=== PATIENT | female | born 2000 | race Caucasian/White ===

== ENCOUNTER → 2021-09-23 09:03 | Outpatient (CLI) | payer OTHER, SELFPAY ==
[2021-09-23 09:38] LABS: Basophils # 0.1 K/mm3 (0-0.2); Basophils % 0.8 % (0.1-2.0); Eosinophils % 9.4 % (0.1-12.0); Hematocrit 42.7 % (37.0-47.0); Hemoglobin 14.1 g/dL (12.2-16.2); Lymphocytes % 20.1 % (10-50); Mean Corpuscular HGB Conc 33.1 g/dL (31.8-35.4); Mean Corpuscular Hemoglobin 27.9 pg (27.0-31.2); Mean Corpuscular Volume 84.2 fl (81-99); Mean Platelet Volume 6.9 fl (7.4-10.4); Monocytes # 0.6 K/mm3 (0.1-1.0); Monocytes % 6.2 % (1.7-9.3); Neutrophils # 6.5 K/mm3 (1.8-7.8); Neutrophils % 63.5 % (37.0-80.0); Platelet Count 402 K/mm3 (142-424); Red Blood Count 5.07 M/mm3 (4.20-5.40); Red Cell Distribution Width 12.7 % (11.5-17.5); White Blood Count 10.2 K/mm3 (4.5-13.0)
[2021-09-23 10:36] LABS: Alanine Aminotransferase 20 U/L (12-78); Albumin Level 4.2 g/dl (3.5-5.0); Albumin/Globulin Ratio 1.8 (1.1-1.8); Alkaline Phosphatase 56 U/L (38-126); Anion Gap 11.6 mEq/L (5-15); Aspartate Amino Transferase 23 U/L (14-36); Bilirubin,Total 0.7 mg/dl (0.2-1.3); Blood Urea Nitrogen 12 mg/dl (7-17); Calcium 9.5 mg/dl (8.4-10.2); Carbon Dioxide 24 mmol/L (22.0-30.0); Chloride 104 mmol/L (98-107); Estimated Glomerular Filt Rate 107 ml/min (>60); GFR (African American) 129 ML/MIN (>60); Globulin 2.4 g/dL (1.3-3.2); Glucose 98 mg/dl (74-100); Potassium 4.6 mmoL/L (3.5-5.1); Sodium 135 mmol/L (136-145); Total Protein,Serum 6.6 g/dl (6.3-8.2)
[2021-09-23 11:08] LABS: Thyroid Stimulating Hormone 1.14 uIU/mL (0.465-4.68)
[2021-09-23 11:27] LABS: Vitamin B12 540 pg/mL (239-931)
== END ==
PROVIDERS: Visit Provider Nurse Practitioner Family
DX: R53.81 Other malaise (principal)
CPT/HCPCS: 36415; 80053; 82607; 84443; 85025

== ENCOUNTER → 2021-10-01 08:45 | Outpatient (CLI) | payer OTHER, SELFPAY ==
[2021-10-01 11:21] LABS: HCG,Quantitative 24443 mIU/ml (0-5.42)
== END ==
PROVIDERS: Visit Provider Obstetrics & Gynecology
DX: Z34.90 Encounter for supervision of normal pregnancy, unspecified, unspecified trimester (principal)
CPT/HCPCS: 36415; 84702

== ENCOUNTER → 2021-10-03 08:35 | Outpatient (CLI) | payer OTHER, SELFPAY ==
[2021-10-03 11:30] LABS: HCG,Quantitative 34618 mIU/ml (0-5.42)
== END ==
PROVIDERS: Visit Provider Obstetrics & Gynecology
DX: Z34.90 Encounter for supervision of normal pregnancy, unspecified, unspecified trimester (principal)
CPT/HCPCS: 36415; 84702

== ENCOUNTER → 2021-10-08 09:43 | Outpatient (CLI) | payer OTHER, SELFPAY ==
--- NOTE | 2021-10-08 09:44 | US_ITS ---
PROCEDURE: US OB <= 14 WEEKS FETUS CLINICAL INDICATION: Dates COMPARISON: No exams were available for comparison FINDINGS: An intrauterine gestational sac is present with a pole with a crown-rump length of 0.88cm correlating to gestational age of 6weeks 6days. heart tones are present with an FHR of 125bpm. Yolk sac is noted. Unremarkable adnexa IMPRESSION: Live IUP at 6 weeks 6 days Estimated due date by Ultrasound is 05/28/2022 Dictated by: Jasiel Haq MD 10/08/2021 15:57 Jasiel Haq MD in [place] 10/08/2021 15:57
== END ==
PROVIDERS: PCP Internal Medicine Adolescent Medicine; Visit Provider Obstetrics & Gynecology
DX: Z34.90 Encounter for supervision of normal pregnancy, unspecified, unspecified trimester (principal)
CPT/HCPCS: 76801

== ENCOUNTER → 2021-10-14 16:11 | Outpatient (CLI) | payer OTHER, SELFPAY ==
[2021-10-17 01:10] LABS: Neisseria gonorrhoeae, NAA Negative (Negative)
== END ==
PROVIDERS: Visit Provider Obstetrics & Gynecology
DX: Z34.90 Encounter for supervision of normal pregnancy, unspecified, unspecified trimester (principal)
CPT/HCPCS: 87491; 87591

== ENCOUNTER 2021-11-03 08:34 | Emergency (ER) | payer OTHER, SELFPAY ==
[2021-11-03 08:34] VITALS: BP 133/78; PULSE 103; RESP 18; TEMP 37.2; O2SAT 97; BMI 32.5
--- NOTE | 2021-11-03 09:04 | HMH.EDGENADL ---
ED Disposition Clinical Impression: Exposure to COVID-19 virus Disposition: Home, Self-Care Condition on Discharge: Good Instructions: DI for COVID-19 (Suspected or Confirmed ) Additional Instructions: Quarantine yourself until you obtain your COVID-19 test result. You will be called with the result. If your COVID test comes back positive, the recommendations for care and isolation are: Rest, drink plenty of fluids. Tylenol for fever and/or aches and pains. Monitor your symptoms. IF YOU HAVE AN EMERGENCY WARNING SIGN (INCLUDING TROUBLE BREATHING), SEEK EMERGENCY MEDICAL CARE IMMEDIATELY. COVID-19 Isolation: People with COVID-19 should isolate for 5 days. Then if they are asymptomatic (no symptoms) or their symptoms are resolving (without fever for 24 hours), follow that by 5 days of wearing a mask when around others to minimize the risk of infecting people you encounter. If you test positive for COVID-19 and never develop symptoms, day 0 is the day of your positive viral test (based on the date you were tested) and day 1 is the first full day after your positive test. If you develop symptoms after testing positive, your 5-day isolation period must start over. Day 0 is your first day of symptoms. Day 1 is the first full day after your symptoms developed. What to do: Stay in a separate room from other household members, if possible. Use a separate bathroom, if possible. Avoid contact with other members of the household and pets. Don?t share personal household items, like cups, towels, and utensils. Wear a mask when around other people if able. Referrals: Rj Terrell MD [Primary Care Provider] - - Critical Care Critical Care Time: No Attestation: On 11/03/21, the high probability of a clinically significant, sudden or life threatening deterioration of the following system(s) required my full and direct attention, intervention and personal management. The time I documented below is in addition to time spent performing reported procedures but includes the following listed in this critical care notation. Medical Decision Making - Yosef Inquiry Pt receiving controlled substance: No Vital Signs: 11/03/21 08:34 Temperature 98.9 F Temperature Source Oral Pulse Rate [Left Radial] 103 H Respiratory Rate 18 Blood Pressure [Right Arm] 133/78 Blood Pressure Mean [Right Arm] 96 Blood Pressure Source [Right Arm] Automatic Cuff Blood Pressure Position [Right Arm] Sitting 02 Sat by Pulse Oximetry 97 Oxygen Delivery Method Room Air General Adult HPI - General Chief complaint: Fever Stated complaint: 11 weeks w/covid symptoms Time Seen by Provider: 11/03/21 08:55 Mode of Arrival: Ambulatory Limitations: No Limitations Description of Symptoms (Recalled from ER Triage Doc. by RN): Fever, BROWNING, aches, sore throat, congestion, cough, soa, and vomiting since Thursday - History of Present Illness HPI narrative: 11 weeks gestation , requests a COVID test. She is here with her fianc? who is also requesting COVID test. Patient states that some of her classmates have had COVID. Also her fianc? has symptoms and he was exposed to 2 coworkers with COVID. She complains of headaches, nausea, fatigue, sore throat, mild cough, sweats, feeling hot and cold. She is not vaccinated against COVID-19. No vaginal bleeding or abdominal pain. - Related Data Home Medications Medication Instructions Recorded Confirmed cetirizine 10 mg tablet 10 mg PO QDAY 11/02/17 10/14/21 albuterol sulfate 90 mcg/actuation INHALATION 17 Days #18 g 12/16/18 10/14/21 aerosol inhaler famotidine 10 mg tablet 10 mg PO DAILY 10/14/21 10/14/21 vit no.95-ferrous 1 tab PO DAILY 10/14/21 10/14/21 fumarate 28 mg-folic acid 800 mcg tablet Previous Rx's Medication Instructions Recorded triamcinolone acetonide 0.1 % 1 applic TOPICAL TID #60 g 03/05/19 topical cream ferrous sulfate 325 mg (
--- NOTE | 2021-11-03 09:04 | PC.NURSE ---
Covid Swab and strep swab sent to lab
[2021-11-03 09:24] LABS: Strep Scrn Group A (Rapid) Negative (Negative)
[2021-11-03 09:30] VITALS: BP 124/78
[2021-11-03 09:31] VITALS: BP 124/78; PULSE 101; RESP 18; TEMP 37.2; O2SAT 96
== END 2021-11-03 09:38 | disposition home or self-care (01) ==
PROVIDERS: Emergency Provider Emergency Medicine; PCP Internal Medicine Adolescent Medicine
DX: U07.1 COVID-19 (principal); Z3A.11 11 weeks gestation of pregnancy; R50.9 Fever, unspecified; J45.909 Unspecified asthma, uncomplicated
CPT/HCPCS: 87430; 99282; C9803; U0003; U0005

== ENCOUNTER → 2021-11-11 14:06 | Outpatient (CLI) | payer OTHER, SELFPAY ==
[2021-11-11 15:15] LABS: Basophils # 0.1 K/mm3 (0-0.2); Basophils % 0.6 % (0.1-2.0); Eosinophils # 0.5 K/mm3 (0.0-0.4); Eosinophils % 5.2 % (0.1-12.0); Hematocrit 40.8 % (37.0-47.0); Hemoglobin 13.8 g/dL (12.2-16.2); Lymphocytes # 1.9 K/mm3 (0.7-4.5); Lymphocytes % 18.8 % (10-50); Mean Corpuscular HGB Conc 33.8 g/dL (31.8-35.4); Mean Corpuscular Hemoglobin 28.1 pg (27.0-31.2); Mean Platelet Volume 7.9 fl (7.4-10.4); Monocytes # 0.5 K/mm3 (0.1-1.0); Monocytes % 4.9 % (1.7-9.3); Neutrophils # 7.2 K/mm3 (1.8-7.8); Neutrophils % 70.6 % (37.0-80.0); Platelet Count 344 K/mm3 (142-424); Red Blood Count 4.92 M/mm3 (4.20-5.40); Red Cell Distribution Width 12.9 % (11.5-17.5); White Blood Count 10.2 K/mm3 (4.5-13.0)
[2021-11-13 08:17] LABS: HIV Screen 4th Generation wRfx Non Reactive (Non Reactive); Hepatitis B Surface Antigen Negative (Negative); Hepatitis C Antibody <0.1 s/co ratio (0.0-0.9)
[2021-11-13 09:13] LABS: Rubella Antibodies, IgG <0.90 index (Immune >0.99)
[2021-11-13 10:12] LABS: Rapid Plasma Reagin Ab Titer Non Reactive (NonRea<1:1)
== END ==
PROVIDERS: PCP Internal Medicine Adolescent Medicine; Visit Provider Obstetrics & Gynecology
DX: Z34.90 Encounter for supervision of normal pregnancy, unspecified, unspecified trimester (principal)
CPT/HCPCS: 36415; 85025; 86592; 86703; 86762; 86850; 87340; 87380; G0432

== ENCOUNTER → 2022-01-06 13:21 | Outpatient (CLI) | payer OTHER, SELFPAY ==
--- NOTE | 2022-01-06 13:22 | US_ITS ---
FINAL REPORT CLINICAL HISTORY: anatomy scan, OB complete FINDINGS: There is a single live intrauterine gestation. Presentation is breech. The cervix is closed and measures 3.42 cm. Placenta is posterior, grade 1. movement is noted. Three-vessel cord with satisfactory umbilical cord insertion. Four-chamber heart is noted. brain and ventricles are unremarkable. Chest and diaphragm are unremarkable. ABDOMEN: Both kidneys are unremarkable. Stomach is unremarkable. SPINE: No anomalies identified. Both arms and legs noted. AMNIOTIC FLUID: Appropriate amount. MEASUREMENTS: ULTRASOUND AGE: 20 weeks 2 days. GESTATION AGE: 20 weeks 0 days. ESTIMATED WEIGHT: 346 g GROWTH PERCENTILE: 64 % BPD: 4.82 cm corresponding to 20 weeks 5 days. OFD: 5.76 cm corresponding to 20 weeks 0 days. HC: 16.68 cm corresponding to 19 weeks 3 days. AC: 15.19 cm corresponding to 20 weeks 3 days. FL: 3.33 cm corresponding to 20 weeks 3 days. CEREBELLUM: 2.05 cm corresponding to 20 weeks 6 days. HUMERUS: 3.16 cm corresponding to 20 weeks 4 days. HC/AC: 1.10 CI: 84% FL/BPD: 69% FL/AC: 22% IMPRESSION: Single living IUP with an ultrasound age of 20 weeks 2 days. Reviewed, Interpreted and Dictated by Gabo Flores III, MD Transcribed by Tamiko Briggs Authenticated by Gabo Flores III, MD on 01/06/2022 02:59:24 PM [facility]
== END ==
PROVIDERS: PCP Internal Medicine Adolescent Medicine; Visit Provider Obstetrics & Gynecology
DX: Z34.90 Encounter for supervision of normal pregnancy, unspecified, unspecified trimester (principal)
CPT/HCPCS: 76805

== ENCOUNTER 2022-01-25 05:45 | Outpatient (CLI) | payer OTHER, SELFPAY ==
[2022-01-25 05:59] VITALS: BMI 34.3
[2022-01-25 06:07] LABS: Microscopic, Urine URINE MICROSCOPIC (MICROSCOPIC)
[2022-01-25 06:08] LABS: Appearance,Urine SL CLOUDY (Clear); Bilirubin,Urine Negative (Negative); Blood, Urine Negative (Negative); Color,Urine YELLOW (Yellow); Glucose,Urine (UA) Negative (Negative); Ketones,Urine Negative (Negative); Leukocyte Esterase,Urine TRACE (Negative); Nitrate,Urine Negative (Negative); PH,Urine 6.5 (5.0-8.5); Protein,Urine Negative (Negative); Urobilinogen,Urine 0.2 EU/dl (0.2)
[2022-01-25 06:10] LABS: Bacteria,Urine 1+ /lpf
[2022-01-25 06:16] VITALS: BP 131/63; PULSE 99; RESP 18; TEMP 36.9; O2SAT 99; BMI 34.3
[2022-01-25 06:19] LABS: Benzodiazepines Screen,Urine Negative ng/ml (<200)
[2022-01-25 06:20] LABS: Amphetamine/Metha Screen,Urine Negative ng/ml (<1000); Barbiturates Screen,Urine Negative ng/ml (<200)
[2022-01-25 06:21] LABS: Cannabinoid Screen,Urine Negative ng/ml (<50)
[2022-01-25 06:22] LABS: Cocaine Screen,Urine Negative ng/ml (<300); Methadone Screen,Urine Negative ng/ml (<300)
[2022-01-25 06:23] LABS: Opiate Screen,Urine Negative ng/ml (<300); Phencyclidine Screen,Urine Negative ng/ml (<25)
== END 2022-01-25 08:40 | disposition home or self-care (01) ==
LOC: OBOUT 05:47 → OB 05:48
PROVIDERS: PCP Internal Medicine Adolescent Medicine; Visit Provider Nurse Practitioner Obstetrics & Gynecology
DX: O99.891 Other specified diseases and conditions complicating pregnancy (principal); Z28.39 Other underimmunization status; O98.519 Other viral diseases complicating pregnancy, unspecified trimester; U07.1 COVID-19; Z3A.20 20 weeks gestation of pregnancy
CPT/HCPCS: 80305; 81001; 87086; 87088; 87186; 96365; 96367; G0463

== ENCOUNTER → 2022-02-17 11:39 | Outpatient (CLI) | payer OTHER, SELFPAY | PROVIDERS: Visit Provider Obstetrics & Gynecology | DX: Z34.90 Encounter for supervision of normal pregnancy, unspecified, unspecified trimester (principal) | CPT/HCPCS: 87086; 87088; 87186 ==

== ENCOUNTER → 2022-02-19 10:23 | Outpatient (CLI) | payer OTHER, SELFPAY ==
[2022-02-19 11:49] LABS: Basophils # 0.1 K/mm3 (0-0.2); Basophils % 0.6 % (0.1-2.0); Eosinophils # 0.4 K/mm3 (0.0-0.4); Eosinophils % 3.8 % (0.1-12.0); Hematocrit 34.2 % (37.0-47.0); Hemoglobin 11.4 g/dL (12.2-16.2); Lymphocytes % 17.4 % (10-50); Mean Corpuscular HGB Conc 33.5 g/dL (31.8-35.4); Mean Corpuscular Hemoglobin 27.6 pg (27.0-31.2); Mean Corpuscular Volume 82.5 fl (81-99); Mean Platelet Volume 7.6 fl (7.4-10.4); Monocytes # 0.7 K/mm3 (0.1-1.0); Monocytes % 6.1 % (1.7-9.3); Neutrophils # 8.1 K/mm3 (1.8-7.8); Platelet Count 398 K/mm3 (142-424); Red Blood Count 4.15 M/mm3 (4.20-5.40); Red Cell Distribution Width 14.2 % (11.5-17.5); White Blood Count 11.3 K/mm3 (4.5-13.0)
[2022-02-19 12:10] LABS: Glucose,Fasting 95 mg/dl (74-100)
[2022-02-19 12:21] LABS: Glucose 1 Hour 162 mg/dL (74-100)
== END ==
PROVIDERS: Visit Provider Obstetrics & Gynecology
DX: Z34.90 Encounter for supervision of normal pregnancy, unspecified, unspecified trimester (principal)
CPT/HCPCS: 36415; 82951; 85025

== ENCOUNTER → 2022-02-25 10:21 | Outpatient (CLI) | payer OTHER, SELFPAY ==
[2022-02-25 10:50] LABS: Glucose,Fasting 110 mg/dl (74-100)
[2022-02-25 12:51] LABS: Glucose 1 Hour 188 mg/dL (74-100)
[2022-02-25 14:05] LABS: Glucose 2 Hour 156 mg/dL (74-100)
[2022-02-25 14:39] LABS: Glucose 3 Hour 138 mg/dL (74-100)
== END ==
PROVIDERS: PCP Internal Medicine Adolescent Medicine; Visit Provider Obstetrics & Gynecology
DX: R73.09 Other abnormal glucose (principal); Z34.90 Encounter for supervision of normal pregnancy, unspecified, unspecified trimester
CPT/HCPCS: 36415; 82951

== ENCOUNTER 2022-03-24 02:11 | Outpatient (CLI) | payer OTHER, SELFPAY ==
[2022-03-24 02:19] VITALS: BMI 34.3
[2022-03-24 02:24] LABS: Microscopic, Urine URINE MICROSCOPIC (MICROSCOPIC)
[2022-03-24 02:29] LABS: Appearance,Urine CLEAR (Clear); Bilirubin,Urine Negative (Negative); Blood, Urine Negative (Negative); Color,Urine YELLOW (Yellow); Glucose,Urine (UA) Negative (Negative); Ketones,Urine Negative (Negative); Leukocyte Esterase,Urine 1+ (Negative); Nitrate,Urine Negative (Negative); Protein,Urine Negative (Negative); Specific Gravity, Urine <= 1.005 (1.005-1.030); Urobilinogen,Urine 0.2 EU/dl (0.2)
--- NOTE | 2022-03-24 02:30 | ECG_ITS ---
APPROVED REPORT Exam: Resting ECG HR:138 bpm ECG Measurements Heart Rate 138 AXES PA 144 P 34 QRSd 66 QRS 33 QT 272 T 21 QTc 353 Conclusion SINUS TACHYCARDIA ABNORMAL RHYTHM ECG UNCONFIRMED REPORT Electronically signed by : Rj Terrell MD 03/25/2022 22:20:04
[2022-03-24 02:40] LABS: Benzodiazepines Screen,Urine Negative ng/ml (<200)
[2022-03-24 02:41] LABS: Amphetamine/Metha Screen,Urine Negative ng/ml (<1000)
[2022-03-24 02:42] LABS: Barbiturates Screen,Urine Negative ng/ml (<200); Cannabinoid Screen,Urine Negative ng/ml (<50)
[2022-03-24 02:43] LABS: Cocaine Screen,Urine Negative ng/ml (<300); Methadone Screen,Urine Negative ng/ml (<300)
[2022-03-24 02:44] LABS: Opiate Screen,Urine Negative ng/ml (<300)
[2022-03-24 02:45] LABS: Phencyclidine Screen,Urine Negative ng/ml (<25)
[2022-03-24 02:46] LABS: Bacteria,Urine 1+ /lpf; RBC,Urine Occasional #/hpf (0-3)
[2022-03-24 02:59] LABS: Coronavirus 19, PCR Not Detected (NotDetected); Influenza A, PCR Not Detected (NotDetected); Influenza B, PCR Not Detected (NotDetected)
[2022-03-24 03:05] LABS: Basophils # 0.1 K/mm3 (0-0.2); Basophils % 0.3 % (0.1-2.0); Eosinophils # 0.2 K/mm3 (0.0-0.4); Hematocrit 28.3 % (37.0-47.0); Hemoglobin 11.4 g/dL (12.2-16.2); Lymphocytes # 1.2 K/mm3 (0.7-4.5); Lymphocytes % 7.4 % (10-50); Mean Corpuscular Hemoglobin 32.5 pg (27.0-31.2); Mean Corpuscular Volume 80.6 fl (81-99); Mean Platelet Volume 8.1 fl (7.4-10.4); Monocytes # 1.2 K/mm3 (0.1-1.0); Monocytes % 7.2 % (1.7-9.3); Neutrophils % 84.2 % (37.0-80.0); Platelet Count 259 K/mm3 (142-424); Red Blood Count 3.51 M/mm3 (4.20-5.40); Red Cell Distribution Width 14.9 % (11.5-17.5); White Blood Count 16.6 K/mm3 (4.8-10.8)
[2022-03-24 03:11] VITALS: BP 120/78; PULSE 140; RESP 20; TEMP 37.8; O2SAT 98; BMI 30.4
[2022-03-24 03:12] LABS: Chloride 104 mmol/L (98-107)
[2022-03-24 03:13] LABS: Potassium 3.7 mmoL/L (3.5-5.1); Sodium 132 mmol/L (136-145)
[2022-03-24 03:14] LABS: Mean Corpuscular HGB Conc 40.4 g/dL (31.8-35.4)
[2022-03-24 03:15] LABS: Alanine Aminotransferase 29 U/L (12-78); Alkaline Phosphatase 126 U/L (38-126); Anion Gap 13.7 mEq/L (5-15); Aspartate Amino Transferase 28 U/L (14-36); Bilirubin,Total 1.1 mg/dl (0.2-1.3); Blood Urea Nitrogen 4 mg/dl (7-17); Carbon Dioxide 18 mmol/L (22.0-30.0); Creatinine Clearance Estimated 212 mL/min (50-200); Estimated Glomerular Filt Rate 126 ml/min (>60); GFR (African American) 153 ML/MIN (>60); Lactic Acid 1.3 mmol/L (0.7-2.1)
[2022-03-24 03:16] LABS: Albumin Level 3.6 g/dl (3.5-5.0); Albumin/Globulin Ratio 1.1 (1.1-1.8); Calcium 9.4 mg/dl (8.4-10.2); Globulin 3.2 g/dL (1.3-3.2); Glucose 103 mg/dl (74-100); Total Protein,Serum 6.8 g/dl (6.3-8.2)
[2022-03-24 03:17] LABS: MANUAL DIFFERENTIAL MANUAL DIFFERENTIAL (MANUAL DIFF)
[2022-03-24 04:00] LABS: Lymphocytes % 12 % (10-50); Monocytes % 8 % (2-9); Neutrophils % 79 % (42-76); Platelet Estimate Normal; Total Cells Counted 100
[2022-03-24 04:01] LABS: Microcytosis 1+
== END 2022-03-24 05:45 | disposition home or self-care (01) ==
LOC: OBOUT 02:12 → OB 02:14
PROVIDERS: PCP Internal Medicine Adolescent Medicine; Referring Provider Obstetrics & Gynecology; Visit Provider Obstetrics & Gynecology
DX: O47.03 False labor before 37 completed weeks of gestation, third trimester (principal); O23.40 Unspecified infection of urinary tract in pregnancy, unspecified trimester; Z3A.30 30 weeks gestation of pregnancy
CPT/HCPCS: 80053; 80305; 81001; 83605; 85007; 85025; 87040; 87086; 93005; C9803; U0003; U0005

== ENCOUNTER 2022-04-11 15:34 | Inpatient (IN) | payer OTHER, SELFPAY ==
[2022-04-11 12:39] VITALS: BP 130/80; PULSE 83; RESP 16; TEMP 36.7; O2SAT 97; BMI 35.2
[2022-04-11 14:03] LABS: Fetal Fibronectin (Rapid) Negative (Negative)
[2022-04-11 16:37] LABS: Coronavirus 19, PCR Not Detected (NotDetected); Influenza A, PCR Not Detected (NotDetected); Influenza B, PCR Not Detected (NotDetected)
--- NOTE | 2022-04-11 17:18 | HMH.HP ---
*Admission Date: 04/11/22 *Chief complaint: contractions *History of present illness: 22 yo @ 33 2/7 weeks admitted with labor TONYA 05/28/22; dating by 6 03/18 ultrasound complicated by GDMA2, with medical management Glyburide 7.5am and 5pm Routine antepartum testing with NST in office today showed regular contractions q 3 minutes She was sent to OB triage for further evaluation and/or treatment IV fluid bolus given, along with subcutaneous brethine and po procardia FFN negative She continue to have regular contractions with cervical change from 1cm to 2cm She is admitted for tocolysis Celestone given for acceleration of lung maturity; dose will be repeated in 24 hours [facility] History I have reviewed the patient's past medical history: Yes Medical History: Reports:: Asthma *Have you ever received a pneumonia vaccine?: No *Have you received a flu vaccine this season?: No Other Medical History: Reports: Arthritis Other Surgeries: Yes: No Previous Surgery. No: Amputation: No Fractures: No - *Social History Smoking Status: Former smoker Alcohol Intake: never Substance Use Type: denies use *Occupational Status:: other Housing: house Household Members: family *Travel in the last 8 weeks: None Family Hx:: Cancer, Diabetes, Heart Attack, Hypertension Para: 0 Review of Systems - Review of Systems Review of systems:: pertinent systems reviewed and negative unless documented below - *Genitourinary Reports other (+ contractions), Denies abnormal vaginal bleeding, Denies vaginal discharge Meds Home Medications Medication Instructions Recorded Confirmed Type cetirizine 10 mg tablet 10 mg PO QDAY 11/02/17 04/11/22 History albuterol sulfate 90 mcg/actuation 1 puff IH DAILY 17 Days #18 g 12/16/18 04/11/22 History aerosol inhaler famotidine 10 mg tablet 10 mg PO DAILY 10/14/21 04/11/22 History vit no.95-ferrous 1 tab PO DAILY 10/14/21 04/11/22 History fumarate 28 mg-folic acid 800 mcg tablet Ferrous Sulfate 325 mg PO DAILY 03/24/22 04/11/22 History cephalexin 500 mg capsule 500 mg PO DAILY #60 cap 03/24/22 04/11/22 Rx glyburide 5 mg tablet 5 mg PO BID #90 tab 04/11/22 04/11/22 Rx Allergies Allergy/AdvReac Type Severity Reaction Status Date / Time No Known Allergies Allergy Verified 04/11/22 10:49 Exam Vital signs and Labs for Last 24 Hours: Temp Pulse Resp BP Pulse Ox 98.0 F 83 16 130/80 97 04/11/22 12:39 04/11/22 12:39 04/11/22 12:39 04/11/22 12:39 04/11/22 12:39 Laboratory Results - last 24 hr 04/11/22 13:15: Fibronectin Negative I & O for Last 24 hours: Intake & Output 04/09/22 04/10/22 04/11/22 04/12/22 11:59 11:59 11:59 11:59 Weight 205 lb - Constitutional no acute distress - *Routine HEENT Exam Head: Present: normocephalic Eye: Absent: conjunctival icterus, scleral injection ENT: Present: mucous membranes moist - *Routine Neck Exam Present: supple. Absent: lymphadenopathy - *Routine Respiratory Exam Present: CTA bilaterally - *Routine Cardiovascular Exam Present: RRR - *Routine Abdominal Exam Present: soft, normoactive bowel sounds. Absent: tenderness - *Routine Rectal Exam Rectal:: deferred - *Routine Genitalia Exam Genitalia:: normal female Comment:: cervix 2/25% - *Routine Extremities Exam Absent: cyanosis, clubbing, edema - *Routine Skin Exam Present: warm. Absent: rash - *Routine Neurological Exam Present: alert, oriented X3 Assessment and Plan (1) 33 weeks gestation of Status: Acute Category: Medical Code(s): Z3A.33 - 33 weeks gestation of (2) labor Status: Acute Category: Medical Code(s): O60.00 - labor without delivery, unspecified trimester (3) GDM, class A2 Status: Acute Category: Medical Code(s): O24.419 - Gestational diabetes mellitus in , unspecified control (4) Rubella non-immune sta
[2022-04-11 19:56] VITALS: BP 132/73; PULSE 101; RESP 18; TEMP 36.6; O2SAT 98
[2022-04-11 20:36] LABS: POC Glucose,Bedside 170 (70-110)
[2022-04-12 00:08] VITALS: BP 135/65; PULSE 97; RESP 19; TEMP 36.6; O2SAT 97
[2022-04-12 03:46] VITALS: BP 118/63; PULSE 81; RESP 18; TEMP 36.7; O2SAT 98
[2022-04-12 07:18] LABS: POC Glucose,Bedside 123 (70-110)
[2022-04-12 08:11] LABS: Magnesium 5.4 mg/dl (1.6-2.3)
--- NOTE | 2022-04-12 08:29 | HMH.PHAINT ---
MEDICATION RECONCILIATION COMPLETED ON PATIENT USING EXTERNAL FILL HISTORY FROM PHARMACY. -JOVANI VELAZQUEZ, SHAUND
[2022-04-12 12:22] LABS: POC Glucose,Bedside 115 (70-110)
--- NOTE | 2022-04-12 13:32 | P.PN_ITS ---
Internal Medicine - PN: Subj *Date: 04/12/22 *Time: 13:32 Interval history: HD #2 labor 33 3/7 weeks Contractions stable on Magnesium Sulfate over night Patient is tolerating magnesium without significant side effects S/P one dose of celestone, with repeat dose scheduled for later this afternoon tracing has been reassuring Tolerating regular diet Voiding without difficulty Exam Vital signs and Labs for Last 24 Hours: Temp Pulse Resp BP Pulse Ox 98.1 F 81 18 118/63 98 04/12/22 03:46 04/12/22 03:46 04/12/22 03:46 04/12/22 03:46 04/12/22 03:46 Laboratory Results - last 24 hr 04/11/22 13:15: Fibronectin Negative 04/11/22 16:31: SARS-CoV-2 (PCR) Not detected, Influenza A Untype (PCR) Not detected, Influenza Type B (PCR) Not detected 04/11/22 20:24: POC Glucose 170 H 04/12/22 06:53: POC Glucose 123 H 04/12/22 07:52: Magnesium 5.4 H 04/12/22 12:16: POC Glucose 115 H I & O for Last 24 hours: Intake & Output 04/10/22 04/11/22 04/12/22 04/13/22 11:59 11:59 11:59 11:59 Weight 205 lb Narrative: CONSTITUTIONAL: no acute distress HEENT: mucous membranes moist PULMONARY: breathing unlabored without audible wheezes CV: no tachycardia or visible JVD; normal LE peripheral pulses ABD: soft, NT/ND, no guarding : cervix 2/25 SKIN: no visible rash or lesions EXT: no edema LEs NEURO: alert/oriented, no altered mental status; DTR 1+ PSYCH: appropriate mood and demeanor Assessment and Plan (1) 33 weeks gestation of Status: Acute Category: Medical Code(s): Z3A.33 - 33 weeks gestation of (2) labor Status: Acute Category: Medical Code(s): O60.00 - labor without delivery, unspecified trimester (3) GDM, class A2 Status: Acute Category: Medical Code(s): O24.419 - Gestational diabetes m ellitus in , unspecified control (4) Rubella non-immune status, antepartum Status: Acute Category: Medical Code(s): O99.891 - Other specified diseases and conditions complicating ; Z28.3 - Underimmunization status - Assessment and plan all Dx Assessment and Plan for all problems:: Continue magnesium sulfate tocolysis Celestone #2 this afternoon Twice daily NST Plan to decrease magnesium to 1gm/hour overnight Discontinue magnesium in am with concurrent start of po procardia Possible discharge home tomorrow afternoon if contractions stable on procardia Continue current management of GDMA2 with po glyburide PPI added for heartburn symptoms
[2022-04-12 18:46] LABS: POC Glucose,Bedside 179 (70-110)
[2022-04-12 19:55] VITALS: BP 121/66; PULSE 77; RESP 18; TEMP 36.7; O2SAT 99
[2022-04-12 23:48] VITALS: BP 117/62; PULSE 72; RESP 17; TEMP 36.8; O2SAT 97
[2022-04-13 06:08] VITALS: BP 114/58; PULSE 68; RESP 17; TEMP 36.6; O2SAT 99
[2022-04-13 06:22] LABS: POC Glucose,Bedside 130 (70-110)
[2022-04-13 09:29] LABS: Magnesium 3.8 mg/dl (1.6-2.3)
[2022-04-13 09:50] LABS: POC Glucose,Bedside 140 (70-110)
--- NOTE | 2022-04-13 11:40 | HMH.DCSUM ---
General - General Admission date:: 04/11/22 Discharge date: 04/13/22 HPI HPI: 22 yo @ 33 2/7 weeks admitted with labor TONYA 05/28/22; dating by 6 03/18 ultrasound complicated by GDMA2, with medical management Glyburide 7.5am and 5pm Routine antepartum testing with NST in office today showed regular contractions q 3 minutes She was sent to OB triage for further evaluation and/or treatment IV fluid bolus given, along with subcutaneous brethine and po procardia FFN negative She continue to have regular contractions with cervical change from 1cm to 2cm She is admitted for tocolysis Celestone given for acceleration of lung maturity; dose will be repeated in 24 hours Hospital Course Hospital Course: Hospital course stable Tocolysis with IV magnesium sulfate was successful Following the second dose of celestone she was weaned of magnesium and po procardia started for tocolysis She is discharged home on hospital day #3 in stable condition Irregular contractions with no further cervical change or evidence of active labor Reassuring testing with NST Occasional elevation of blood sugar following celestone, as expected, but no need for sliding scale insulin She will be discharged on po procardia and will continue glyburide She has f/u appt in office in 2 days, with NST Objective Vital signs: Temp Pulse Resp BP Pulse Ox 97.9 F 68 17 114/58 L 99 04/13/22 06:08 04/13/22 06:08 04/13/22 06:08 04/13/22 06:08 04/13/22 06:08 Narrative: CONSTITUTIONAL: no acute distress HEENT: mucous membranes moist PULMONARY: breathing unlabored without audible wheezes CV: no tachycardia or visible JVD; normal LE peripheral pulses ABD: soft, NT/ND, no guarding : deferred SKIN: no visible rash or lesions EXT: no edema LEs NEURO: alert/oriented, no altered mental status; 1+ DTR PSYCH: appropriate mood and demeanor NST: category 1 Results Labs on day of discharge: Labs from last 24 hours 04/13/22 04/13/22 04/13/22 09:42 08:40 06:07 POC Glucose 140 H 130 H Magnesium 3.8 H D 04/12/22 04/12/22 18:39 12:16 POC Glucose 179 H 115 H Magnesium DS: Diagnosis - Discharge Diagnosis (1) 33 weeks gestation of Status: Acute (2) labor Status: Acute (3) GDM, class A2 Status: Acute (4) Rubella non-immune status, antepartum Status: Acute Discharge Plan - Patient Discharge Instructions ACTIVITY: Bed rest DIET: continue same diet Additional Instructions: Rest and drink plenty of fluid Patient Instructions: How to Do Kick Counts, [facility] Labor, Antepartum Care - Follow up Plan Follow up with: Maria Elena Saleh MD [Staff Physician] - 04/15/22 10:00 am Disposition: Home, Self-Care Condition at discharge:: Stable Home Medications: Home Medications Medication Instructions Recorded Confirmed Type vit no.95-ferrous 1 tab PO DAILY 10/14/21 04/11/22 History fumarate 28 mg-folic acid 800 mcg tablet Ferrous Sulfate 325 mg PO DAILY 03/24/22 04/11/22 History cephALEXin [cephALEXin 500mg 500 mg PO DAILY 04/11/22 04/11/22 History capsule*] glyburide 5 mg tablet 5 mg PO BID #90 tab 04/11/22 04/11/22 Rx NIFEdipine [NIFEdipine 10mg 20 mg PO Q6H #120 cap 04/13/22 Rx Capsule] Prescriptions/Medication Reconciliation: New NIFEdipine [NIFEdipine 10mg Capsule] 20 mg PO Q6H #120 cap cephALEXin [cephALEXin 500mg capsule*] 500 mg PO DAILY cap Ferrous Sulfate [Ferrous Sulfate 325mg Tablet] 325 mg PO DAILY tab Continued vit no.95-ferrous fumarate 28 mg-folic acid 800 mcg tablet 1 tab PO DAILY glyburide 5 mg tablet 5 mg PO BID #90 tab Ferrous Sulfate 325 mg PO DAILY cephALEXin [cephALEXin 500mg capsule*] 500 mg PO DAILY - Problem Reconciliation Problems Reviewed?: Yes
[2022-04-13 13:35] LABS: POC Glucose,Bedside 177 (70-110)
== END 2022-04-13 16:58 | disposition home or self-care (01) | DRG 833 ==
LOC: OBOUT 15:37 → OB 15:37
PROVIDERS: Admitting Provider Obstetrics & Gynecology; PCP Internal Medicine Adolescent Medicine; Visit Provider Obstetrics & Gynecology
DX: O60.03 Preterm labor without delivery, third trimester (principal); Z3A.33 33 weeks gestation of pregnancy; O24.425 Gestational diabetes mellitus in childbirth, controlled by oral hypoglycemic drugs
CPT/HCPCS: 36415; 59025; 82731; 82962; 83735; 96360; 96372; C9803; U0003; U0005

== ENCOUNTER 2022-04-22 11:27 | Outpatient (CLI) | payer OTHER, SELFPAY ==
[2022-04-22 12:06] VITALS: BMI 35.6
[2022-04-22 12:09] VITALS: BP 133/81; PULSE 112; RESP 16; TEMP 36.9; O2SAT 96; BMI 35.6
[2022-04-22 12:25] LABS: Basophils # 0.2 K/mm3 (0-0.2); Basophils % 1.3 % (0.1-2.0); Eosinophils # 0.7 K/mm3 (0.0-0.4); Eosinophils % 3.6 % (0.1-12.0); Hematocrit 39.3 % (37.0-47.0); Hemoglobin 12.5 g/dL (12.2-16.2); Lymphocytes # 2.1 K/mm3 (0.7-4.5); Lymphocytes % 11.5 % (10-50); Mean Corpuscular HGB Conc 31.8 g/dL (31.8-35.4); Mean Corpuscular Hemoglobin 26.2 pg (27.0-31.2); Mean Corpuscular Volume 82.4 fl (81-99); Mean Platelet Volume 8.6 fl (7.4-10.4); Monocytes # 0.9 K/mm3 (0.1-1.0); Neutrophils # 14.6 K/mm3 (1.8-7.8); Neutrophils % 78.6 % (37.0-80.0); Platelet Count 398 K/mm3 (142-424); Red Blood Count 4.77 M/mm3 (4.20-5.40); Red Cell Distribution Width 15.8 % (11.5-17.5); White Blood Count 18.5 K/mm3 (4.8-10.8)
[2022-04-22 12:27] LABS: MANUAL DIFFERENTIAL MANUAL DIFFERENTIAL (MANUAL DIFF)
[2022-04-22 12:42] LABS: Eosinophils % 3 % (0-3); Lymphocytes % 17 % (10-50); Monocytes % 3 % (2-9); Neutrophils % 77 % (42-76); RBC Morphology Normal; Total Cells Counted 100
[2022-04-22 12:43] LABS: Platelet Estimate Normal
[2022-04-22 12:48] LABS: Fetal Fibronectin (Rapid) Negative (Negative)
[2022-04-22 13:09] LABS: Anion Gap 13.8 mEq/L (5-15); Blood Urea Nitrogen 13 mg/dl (7-17); Carbon Dioxide 18 mmol/L (22.0-30.0); Chloride 106 mmol/L (98-107); Creatinine Clearance Estimated 221 mL/min (50-200); Estimated Glomerular Filt Rate 126 ml/min (>60); GFR (African American) 153 ML/MIN (>60); Glucose 122 mg/dl (74-100); Potassium 3.8 mmoL/L (3.5-5.1); Sodium 134 mmol/L (136-145); Uric Acid 3.6 mg/dl (2.5-6.2)
[2022-04-22 13:10] LABS: Alanine Aminotransferase 18 U/L (12-78); Aspartate Amino Transferase 26 U/L (14-36); Calcium 9.5 mg/dl (8.4-10.2)
[2022-04-22 13:44] LABS: Activated Partial Thrombo Time 20.8 seconds (22.8-30.6); Fibrinogen 695 mg/dL (229.9-363.5); INR 0.86 (0.9-1.1); Prothrombin Time 9.8 seconds (10.1-12.5)
--- NOTE | 2022-04-22 14:26 | US_ITS ---
FINAL REPORT CLINICAL HISTORY: sga FINDINGS: There is a single live intrauterine gestation. Presentation is cephalic. Placenta is posterior. Cardiac activity is confirmed at 140 bpm. Fetus is active. ELIZABETH: 20.22 cm MEASUREMENTS: ULTRASOUND AGE: 35 weeks 2 days. GESTATION AGE: 35 weeks 1 days. ESTIMATED WEIGHT: 2690 g GROWTH PERCENTILE: 58% BPD: 8.7 cm consistent with 35 weeks 0 days. OFD: 10.9 cm consistent with 35 weeks 0 days. HC: 30.9 cm consistent with 34 weeks 4 days. AC: 32.1 cm consistent with 36 weeks 0 days. FL: 6.8 cm consistent with 35 weeks 1 days. HC/AC: 0.96 CI: 79% FL/BPD: 79% FL/AC: 21% BREATHIN MOVEMENT: 2 TONE: 2 FLUID VOLUME: 2 BPP SCORE: 8/8 IMPRESSION: Single living IUP with an ultrasound age of 35 weeks 2 days. BPP SCORE: 8/8 Reviewed, Interpreted and Dictated by Sree Eugene MD Transcribed by Jarett Sanchez Authenticated and [facility]
== END 2022-04-22 17:05 | disposition home or self-care (01) ==
LOC: OBOUT 11:29 → OB 11:30
PROVIDERS: PCP Internal Medicine Adolescent Medicine; Visit Provider Obstetrics & Gynecology
DX: O47.03 False labor before 37 completed weeks of gestation, third trimester (principal); Z3A.34 34 weeks gestation of pregnancy
CPT/HCPCS: 36415; 59025; 76811; 76819; 76820; 80048; 82731; 84450; 84460; 84550; 85007; 85025; 85378; 85384; 85610; 85730; 96365; 96372; G0463

== ENCOUNTER 2022-05-02 10:54 | Outpatient (CLI) | payer OTHER, SELFPAY ==
[2022-05-02 11:05] VITALS: BMI 35.6
[2022-05-02 11:36] VITALS: BP 130/82; PULSE 96; RESP 16; TEMP 36.7; O2SAT 97; BMI 35.6
[2022-05-02 12:46] LABS: Microscopic, Urine URINE MICROSCOPIC (MICROSCOPIC)
[2022-05-02 12:49] LABS: Appearance,Urine CLEAR (Clear); Bilirubin,Urine Negative (Negative); Blood, Urine Negative (Negative); Color,Urine YELLOW (Yellow); Glucose,Urine (UA) TRACE (Negative); Ketones,Urine Negative (Negative); Leukocyte Esterase,Urine 2+ (Negative); Nitrate,Urine Negative (Negative); PH,Urine 6.5 (5.0-8.5); Protein,Urine Negative (Negative); Urobilinogen,Urine 0.2 EU/dl (0.2)
[2022-05-02 12:59] LABS: Barbiturates Screen,Urine Negative ng/ml (<200)
[2022-05-02 13:00] LABS: Amphetamine/Metha Screen,Urine Negative ng/ml (<1000); Bacteria,Urine Trace /lpf; Benzodiazepines Screen,Urine Negative ng/ml (<200)
[2022-05-02 13:01] LABS: Cannabinoid Screen,Urine Negative ng/ml (<50); Cocaine Screen,Urine Negative ng/ml (<300)
[2022-05-02 13:02] LABS: Methadone Screen,Urine Negative ng/ml (<300)
[2022-05-02 13:03] LABS: Phencyclidine Screen,Urine Negative ng/ml (<25)
[2022-05-02 13:04] LABS: Opiate Screen,Urine Negative ng/ml (<300)
== END 2022-05-02 15:56 | disposition home or self-care (01) ==
LOC: OBOUT 10:55 → OB 10:56
PROVIDERS: PCP Internal Medicine Adolescent Medicine; Visit Provider Obstetrics & Gynecology
DX: O47.03 False labor before 37 completed weeks of gestation, third trimester (principal); Z3A.36 36 weeks gestation of pregnancy
CPT/HCPCS: 59025; 80305; 81001; 86403; 87086; G0463

== ENCOUNTER 2022-05-15 05:05 | Inpatient (IN) | payer BC, OTHER, SELFPAY ==
[2022-05-15 05:23] VITALS: BMI 36.0
[2022-05-15 06:19] LABS: Coronavirus 19, PCR Not Detected (NotDetected); Influenza A, PCR Not Detected (NotDetected); Influenza B, PCR Not Detected (NotDetected); Microscopic, Urine URINE MICROSCOPIC (MICROSCOPIC)
[2022-05-15 06:20] LABS: Appearance,Urine CLEAR (Clear); Bilirubin,Urine Negative (Negative); Blood, Urine Negative (Negative); Color,Urine YELLOW (Yellow); Glucose,Urine (UA) Negative (Negative); Ketones,Urine Negative (Negative); Leukocyte Esterase,Urine 1+ (Negative); Nitrate,Urine Negative (Negative); Protein,Urine Negative (Negative); Specific Gravity, Urine 1.015 (1.005-1.030); Urobilinogen,Urine 0.2 EU/dl (0.2)
[2022-05-15 06:24] LABS: Basophils # 0.2 K/mm3 (0-0.2); Basophils % 1.8 % (0.1-2.0); Eosinophils # 0.6 K/mm3 (0.0-0.4); Eosinophils % 4.6 % (0.1-12.0); Hematocrit 37.4 % (37.0-47.0); Hemoglobin 12.2 g/dL (12.2-16.2); Lymphocytes # 1.9 K/mm3 (0.7-4.5); Lymphocytes % 15.1 % (10-50); Mean Corpuscular HGB Conc 32.6 g/dL (31.8-35.4); Mean Corpuscular Hemoglobin 26.2 pg (27.0-31.2); Mean Corpuscular Volume 80.3 fl (81-99); Mean Platelet Volume 8.4 fl (7.4-10.4); Monocytes # 0.8 K/mm3 (0.1-1.0); Monocytes % 6.3 % (1.7-9.3); Neutrophils # 9.1 K/mm3 (1.8-7.8); Neutrophils % 72.2 % (37.0-80.0); Platelet Count 409 K/mm3 (142-424); Red Blood Count 4.65 M/mm3 (4.20-5.40); Red Cell Distribution Width 15.4 % (11.5-17.5); White Blood Count 12.6 K/mm3 (4.8-10.8)
[2022-05-15 06:31] LABS: Barbiturates Screen,Urine Negative ng/ml (<200); Benzodiazepines Screen,Urine Negative ng/ml (<200)
[2022-05-15 06:32] LABS: Amphetamine/Metha Screen,Urine Negative ng/ml (<1000)
[2022-05-15 06:33] LABS: Cocaine Screen,Urine Negative ng/ml (<300); Methadone Screen,Urine Negative ng/ml (<300)
[2022-05-15 06:34] LABS: Cannabinoid Screen,Urine Negative ng/ml (<50); Opiate Screen,Urine Negative ng/ml (<300)
[2022-05-15 06:35] LABS: Phencyclidine Screen,Urine Negative ng/ml (<25)
[2022-05-15 06:36] LABS: Bacteria,Urine Trace /lpf; Squamous Epithelial Cell,Urine Occasional #/hpf (0-5)
--- NOTE | 2022-05-15 07:20 | HMH.PHAINT ---
MEDICATION RECONCILIATION COMPLETED ON PATIENT USING EXTERNAL FILL HISTORY FROM PHARMACY. -JOVANI VELAZQUEZ, SHAUND
[2022-05-15 07:29] VITALS: BP 121/77; PULSE 81; RESP 17; TEMP 36.8; O2SAT 99; BMI 36.0
--- NOTE | 2022-05-15 09:11 | HMH.HP ---
*Admission Date: 05/15/22 *Chief complaint: oligohydramnios *History of present illness: 22 yo Induction of labor at 38 1/7 for oligohydramnios care at [facility]-- Dr. Saleh complicated by labor @ 33 weeks Treated with magnesium sulfate inpatient; steroids given for lung maturity Discharged home on po procardia until 36 weeks also complicated by GDMA2 Treatment with glyburide 7.5mg am and 5mg pm Good control of blood sugars during testing reassuring with diabetes Continued contractions after inpatient discharge, with cervix 3-4cm for past 2 weeks Ultrasound in office this week showed ELIZABETH 8cm EFW at 34 weeks 58% for GA Rubella non immune THC positive at initial visit Fasting BS this morning 95 [facility] History I have reviewed the patient's past medical history: Yes Medical History: Reports:: Asthma *Have you ever received a pneumonia vaccine?: No *Have you received a flu vaccine this season?: Yes Other Medical History: Reports: Arthritis Other Surgeries: Yes: No Previous Surgery. No: Amputation: No Fractures: No - *Social History Smoking Status: Former smoker Alcohol Intake: never Substance Use Type: denies use *Occupational Status:: employed Housing: house Household Members: family *Travel in the last 8 weeks: None Family Hx:: Cancer, Diabetes, Heart Attack, Hypertension Para: 0 Review of Systems - Review of Systems Review of systems:: pertinent systems reviewed and negative unless documented below - *Genitourinary Reports other (+ contractions) Meds Home Medications Medication Instructions Recorded Confirmed Type vit no.95-ferrous 1 tab PO DAILY 10/14/21 05/15/22 History fumarate 28 mg-folic acid 800 mcg tablet Ferrous Sulfate 325 mg PO DAILY 03/24/22 05/15/22 History glyburide 5 mg tablet 5 mg PO BID #90 tab 04/11/22 05/15/22 Rx Amoxicillin/Potassium Clav 1 tab PO BID 05/15/22 05/15/22 History [Augmentin 500mg tab] Omeprazole 20 mg PO DAILY 05/15/22 05/15/22 History Allergies Allergy/AdvReac Type Severity Reaction Status Date / Time No Known Allergies Allergy Verified 05/12/22 13:00 Exam Vital signs and Labs for Last 24 Hours: Temp Pulse Resp BP Pulse Ox 98.3 F 81 17 121/77 99 08/04/22 07:29 05/15/22 07:29 05/15/22 07:29 05/15/22 07:29 05/15/22 07:29 Laboratory Results - last 24 hr 05/15/22 05:50: WBC 12.6 H, RBC 4.65, Hgb 12.2, Hct 37.4, MCV 80.3 L, MCH 26.2 L, MCHC 32.6, RDW 15.4, Plt Count 409, MPV 8.4, Neut % (Auto) 72.2, Lymph % (Auto) 15.1, Meagher % (Auto) 6.3, Eos % (Auto) 4.6, Baso % (Auto) 1.8, Neut # (Auto) 9.1 H, Lymph # (Auto) 1.9, Meagher # (Auto) 0.8, Eos # (Auto) 0.6 H, Baso # (Auto) 0.2 05/15/22 05:50: Urine Color Yellow, Urine Appearance Clear, Urine pH 6.0, Ur Specific [place] 1.015, Urine Protein Negative, Urine Glucose (UA) Negative, Urine Ketones Negative, Urine Blood Negative, Urine Nitrate Negative, Urine Bilirubin Negative, Urine Urobilinogen 0.2, Ur Leukocyte Esterase 1+ A, Urine RBC None, Urine WBC 10-20, Ur Squamous Epith Cells Occasional, Urine Bacteria Trace 05/15/22 05:50: SARS-CoV-2 (PCR) Not detected, Influenza A Untype (PCR) Not detected, Influenza Type B (PCR) Not detected 05/15/22 05:50: Urine Opiates Screen Negative, Urine Methadone Screen Negative, Ur Barbituates Screen Negative, Ur Phencyclidine Scrn Negative, Ur Amphetamines Screen Negative, U Benzodiazepines Scrn Negative, Urine Cocaine Screen Negative, U Marijuana (THC) Screen Negative 05/15/22 05:50: Blood Type O Positive, Antibody Screen Negative I & O for Last 24 hours: Intake & Output 05/12/22 05/13/22 05/14/22 05/15/22 11:59 11:59 11:59 11:59 Weight 210 lb - Constitutional no acute distress - *Routine HEENT Exam Head: Present: normocephalic Eye: Absent: conjunctival icterus, scleral injection ENT: Present: mucous membranes moist - *Routine Nec
--- NOTE | 2022-05-15 13:07 | HMH.ANESCL ---
[facility] Anesthesia Checklist - Patient Identification Patient Identification: Arm Band, Verbal (Name & ) - Structural Data Admitted From: Inpatient Planned Operative Procedure/s: BRUNILDA Consent for Planned Operative Procedure(s) Verified: Yes Verified Documents: Surgical Consent - NPO Status Verified Time NPO: 00:00 - Chart Verification Results Verified: CBC - Airway Assessment C-Spine Mobility Assessed: Yes TMJ Mobility Assessed: Yes Dentition: Good Dentition - Neurological Assessment Level of Consciousness: Awake, Alert, Appropriate - Anesthesia Plan Anesthesia Risk discussed: Yes ASA Class: II Anesthesia Type: Epidural [facility] History I have reviewed the patient's past medical history: Yes Medical History: Reports:: Asthma *Have you ever received a pneumonia vaccine?: No *Have you received a flu vaccine this season?: Yes Other Medical History: Reports: Arthritis Anesthesia experience/problems:: none Other Surgeries: Yes: No Previous Surgery. No: Amputation: No Fractures: No - *Social History Smoking Status: Former smoker Alcohol Intake: never Substance Use Type: denies use *Occupational Status:: employed Housing: house Household Members: family *Travel in the last 8 weeks: None Family Hx:: Cancer, Diabetes, Heart Attack, Hypertension Para: 0
--- NOTE | 2022-05-15 17:17 | HMH.DN ---
- Delivery Note Delivery Date:: 05/15/22 Delivery Time:: 14:44 Anesthesia Type: Epidural Was labor medically induced?: Yes Induction method: per pitocin protocol delivered prior to 39 weeks?: Yes Justification for early elective delivery:: Oligohydraminos Infant Gender: Male at 1 minute: 7 at 5 minutes: 9 Delivery Procedure:: Spontaneous vaginal delivery of live born male over intact perineum. Delivery uncomplicated No nuchal cord No shoulder dystocia with delivery Infant placed in ADITYA immediately after delivery, with standard nursing assessment performed Infant Apgars: 7 & 9 Placenta spontaneously expressed and examined; noted to be complete/intact. Vulva, vagina, and cervix inspected; 2nd degree perineal laceration repaired with 2-0 vicryl in layers EBL: 300 cc All sponge/needle/instrument counts correct at conclusion of procedure Laceration:: vaginal Placental Delivery Description: Spontaneous
--- NOTE | 2022-05-16 09:08 | HMH.ACPN2 ---
Internal Medicine - PN: Subj *Date: 05/16/22 *Time: 09:08 Interval history: PPD #1 Delivery uncomplicated course uneventful She is tolerating a regular diet She is ambulating and voiding without difficulty Lochia is appropriate and she is asmymptomatic with anemia Hgb 9.9 today (12.2 at admission) Exam Vital signs and Labs for Last 24 Hours: Temp Pulse Resp BP Pulse Ox 98.3 F 81 17 121/77 99 05/15/22 07:29 05/15/22 07:29 05/15/22 07:29 05/15/22 07:29 05/15/22 07:29 Laboratory Results - last 24 hr 05/16/22 09:02: Hgb 9.9 L, Hct 30.9 L I & O for Last 24 hours: Intake & Output 05/14/22 05/15/22 05/16/22 05/17/22 11:59 11:59 11:59 11:59 Weight 210 lb Microbiology Reports for the Last 24 Hours: Microbiology 05/15/22 05:50 Urine,Clean Catch Urine Culture - Preliminary NO GROWTH AFTER 24 HOURS Narrative: CONSTITUTIONAL: no acute distress HEENT: mucous membranes moist PULMONARY: breathing unlabored without audible wheezes CV: no tachycardia or visible JVD; normal LE peripheral pulses ABD: soft, NT/ND, no guarding : fundus firm below umbilicus SKIN: no visible rash or lesions EXT: 1+ edema LEs NEURO: alert/oriented, no altered mental status PSYCH: appropriate mood and demeanor Assessment and Plan (1) 38 weeks gestation of Status: Acute Category: Medical Code(s): Z3A.38 - 38 weeks gestation of (2) Oligohydramnios Status: Acute Category: Medical Code(s): O41.00X0 - Oligohydramnios, unspecified trimester, not applicable or unspecified (3) labor Status: Acute Qualifiers: labor trimester: third trimester labor delivery status: without delivery Qualified Code(s): O60.03 - labor without delivery, third trimester Category: Medical Code(s): O60.00 - labor without delivery, unspecified trimester (4) GDM, class A2 Status: Acute Category: Medical Code(s): O24.419 - Gestational diabetes mellitus in , unspecified control (5) Rubella non-immune status, antepartum Status: Acute Category: Medical Code(s): O99.891 - Other specified diseases and conditions complicating ; Z28.3 - Underimmunization status (6) Positive urine drug screen Problem details: THC Status: Acute Category: Medical Code(s): R82.5 - Elevated urine levels of drugs, medicaments and biological substances - Assessment and plan all Dx Assessment and Plan for all problems:: Routine care FeSO4 supplementation Anticipate discharge home tomorrow
[2022-05-16 09:29] LABS: Hematocrit 30.9 % (37.0-47.0); Hemoglobin 9.9 g/dL (12.2-16.2)
[2022-05-16 19:41] VITALS: RESP 18
[2022-05-17 00:53] VITALS: RESP 18
[2022-05-17 04:35] VITALS: RESP 18
--- NOTE | 2022-05-17 12:24 | HMH.OBDCSM ---
General - General Admission date:: 05/15/22 Discharge date: 05/17/22 HPI - History of Present Illness History of present illness: PPD # 2 s/p Patient is feeling well. Admits to pain/cramping with breast feeding in her abdomen and low back. Medication helps. She is breast feeding. Light lochia. Denies fever/chills, chest pain and shortness of breath. Denies headaches, vision changes and swelling. Hospital Course Hospital Course: Ms Gabi Paige is a 22 yo at 38w1d admitted to [facility] on 05/15/22 for induction of labor secondary to oligohydramnios. She had a normal spontaneous vaginal delivery on 05/15/22. She delivered a boy named Froilan weighing 9 lb 1 oz, APGARs were 7, 9. EBL was 300 mL. PPD #1 She was doing well. No chief complaints. She is breast feeding. Vitals were: BP 121/77, HR 81, R 17, T 98.3. Heart was regular rate and rhythm. Lungs were clear to auscultation. Abdomen was soft, nontender, uterine fundus firm and below umbilicus. Lochia was light. PPD # 2 She was doing well. She had no chief complaints. Reported decreased lochia. She was urinating without difficulty. Passing flatus. Pain was controlled. She had no nausea, vomiting, fever/chills, chest pain or shortness of breath. Vitals were stable. Heart was regular rate and rhythm. Lungs were clear to auscultation. Abdomen was soft, nontender, uterine fundus firm and below umbilicus. Extremities were non-edematous and she had no calf tenderness to palpation. Normal hospital course. During this admission, patient's hemoglobin and hematocrit were: 05/15/22: Hgb 12.2, Hct 37.4 05/16/22: Hgb 9.9, Hct 30.9 Rhogam Administration: Not Indicated Objective Vital signs: Temp Pulse Resp BP Pulse Ox 98.3 F 81 18 121/77 99 05/15/22 07:29 05/15/22 07:29 05/17/22 04:35 05/15/22 07:29 05/15/22 07:29 no acute distress - *Routine HEENT Exam Head: Present: normocephalic Eye: Absent: conjunctivae pink ENT: Present: mucous membranes moist - *Routine Respiratory Exam Present: CTA bilaterally - *Routine Cardiovascular Exam Present: RRR - *Routine Abdominal Exam Present: soft. Absent: tenderness, distended Comments: Uterine fundus firm and below umbilicus - *Routine Extremities Exam Present: full ROM. Absent: edema, calf tenderness DS: Diagnosis - Discharge Diagnosis (1) 38 weeks gestation of Status: Acute (2) Oligohydramnios Status: Acute (3) labor Status: Acute (4) GDM, class A2 Status: Acute (5) Rubella non-immune status, antepartum Status: Acute (6) Positive urine drug screen Status: Acute Problem details: THC (7) Anemia associated with acute blood loss Status: Acute Discharge Plan - Patient Discharge Instructions ACTIVITY: Continue current activity DIET: regular diet Additional Instructions: -No heavy lifting/strenuous activity -Nothing in the vagina for 6 weeks -Call to schedule 2 week follow up appointment with MD Patient Instructions: Depression, Labor and Delivery, Vaginal , Hemorrhage, DI for Pre-eclampsia, [facility] Post Discharge Instructions, Preventing the Spread of Coronavirus Discharge Instructions - Follow up Plan Follow up with: Maria Elena Saleh MD [Staff Physician] - (CALL OFFICE ON THURSDAY FOR 2 WEEK FOLLOW-UP APPOINTMENT.) Disposition: Home, Self-Care Condition at discharge:: Stable Home Medications: Home Medications Medication Instructions Recorded Confirmed Type vit no.95-ferrous 1 tab PO DAILY 10/14/21 05/15/22 History fumarate 28 mg-folic acid 800 mcg tablet Ferrous Sulfate 325 mg PO DAILY 03/24/22 05/15/22 History glyburide 5 mg tablet 5 mg PO BID #90 tab 04/11/22 05/15/22 Rx Amoxicillin/Potassium Clav 1 tab PO BID 05/15/22 05/15/22 History [Augmentin 500mg tab] Omeprazole 20 mg PO DAILY 05/15/22 05/15/22 History Ibuprofen [Motrin 400mg 800 mg PO Q
[2022-07-09 14:06] LABS: POC Glucose,Bedside 95 (70-110)
[2022-07-09 14:06] LABS: POC Glucose,Bedside 95 (70-110)
== END 2022-05-17 14:00 | disposition home or self-care (01) | DRG 806 ==
PROVIDERS: Admitting Provider Obstetrics & Gynecology; PCP Internal Medicine Adolescent Medicine; Visit Provider Obstetrics & Gynecology
DX: O24.429 Gestational diabetes mellitus in childbirth, unspecified control (principal); O41.03X0 Oligohydramnios, third trimester, not applicable or unspecified; Z37.0 Single live birth; Z3A.38 38 weeks gestation of pregnancy
CPT/HCPCS: 59409; 36415; 59025; 80305; 81001; 82962; 85014; 85018; 85025; 86850; 87086; 94761; C1758; C9803; G0283; U0003; U0005

== ENCOUNTER 2022-07-27 19:02 | Emergency (ER) | payer BC, OTHER, SELFPAY ==
[2022-07-27 19:10] VITALS: BP 131/72; PULSE 76; RESP 18; TEMP 36.8; O2SAT 98; BMI 34.0
[2022-07-27 19:23] LABS: Adenovirus,PCR Not Detected (NotDetected); Bordetella Pertussis Not Detected (NotDetected); Chlamydophila Pneumoniae, PCR Not Detected (NotDetected); Coronavirus 19, PCR Not Detected (NotDetected); Coronavirus 229E Not Detected (NotDetected); Coronavirus NL63 Not Detected (NotDetected); Coronavirus OC43 Not Detected (NotDetected); Coronovirus HKU1,PCR Not Detected (NotDetected); Human Metapneumovirus Not Detected (NotDetected); Influenza A, PCR Not Detected (NotDetected); Influenza AH1, 2009 Not Detected (NotDetected); Influenza AH1, PCR Not Detected (NotDetected); Influenza AH3,PCR Not Detected (NotDetected); Influenza B, PCR Not Detected (NotDetected); Mycoplasma Pneumoniae, PCR Not Detected (NotDetected); Parainfluenza 1, PCR Not Detected (NotDetected); Parainfluenza 2, PCR Not Detected (NotDetected); Parainfluenza 3, PCR Not Detected (NotDetected); Parainfluenza 4, PCR Not Detected (NotDetected); Respiratory Syncytial Virus Not Detected (NotDetected)
[2022-07-27 19:34] VITALS: BP 131/72; PULSE 76; RESP 18; TEMP 36.8; O2SAT 98
[2022-07-27 19:34] LABS: UTC Strep Screen (Rapid) Negative (Negative)
--- NOTE | 2022-07-27 19:34 | EXP.UTC ---
Discharge Plan Disposition Patient Disposition: Home, Self-Care Condition: Good Prescriptions Prescriptions: New azithromycin [Zithromax Z-Clarence] 250 mg tablet See Rx Instructions .ROUTE .COMPLEX 5 Days Qty: 6 0RF Rx Instructions: For 250 mg dose pack: take 500 mg today (day 1), then 250 mg for 4 days (days 2-5) benzonatate 100 mg capsule 100 mg PO TID PRN (Reason: cough) Qty: 30 0RF methylprednisolone [Medrol (Clarence)] 4 mg tablets,dose pack See Rx Instructions .Route .COMPLEX 6 Days Qty: 21 0RF Rx Instructions: taper pack; No Action Xulane 150-35 mcg/24 hr patch weekly 1 patch transdermal Q7D Qty: 3 11RF Rx Instructions: apply once weekly for 3 weeks of a 4-week cycle Referrals Follow up/Referrals: Rj Terrell MD [Primary Care Provider] - See instructions Activity Restrictions/Add. Instructions Additional Instructions/Restrictions: *Monitor Temp, Over the counter Motrin or Tylenol as directed/as needed Tylenol every 4 hours and Motrin every 6 hours (as long as your family doctor has told you that you can take it) for fever or pain. and straight to ER if unable to lower temp less than 101.0 after medication given *Warm salt water gargles may help to soothe the throat *Throat Lozenges? *Warm fluids like tea with honey may help to soothe the throat? *Sleep elevated? *Humidifier/Vaporizer Your throat swab was sent for culture. Those results are typically sent to your primary care. Be sure to follow up in 2-3 days with your family doctor/primary care physician if no improvement so they can review those result and treat if necessary. If you don?t have a primary care doctor, I recommend you get one but in the mean time, you will have to return to a walk in clinic Follow up IMMEDIATELY for new or worsening symptoms or no Noticeable improvement over the next 48-72 hours. 911 for difficulty breathing or swallowing You were tested for today for COVID19 your test result should be back in the next 24-48 hours, you may check your results on the [facility] My Health Portal Clinical Impressions Clinical Impression: Sinusitis, Bronchitis Stand Alone Forms Stand Alone Forms: Work/School Release Instructions Patient Instructions: DI for Sinusitis, Sinusitis, Acute Bronchitis Discharge ED Provider: Marley Dillon [facility] HPI General Stated complaint: cough,hermilo Mode of Arrival: Ambulatory Source of Information: Patient Limitations: No Limitations Time Seen by Provider: 07/27/22 19:34 Description of Symptoms (Recalled from Triage Doc. by RN): PATIENT C/O COUGH, CONGESTION, SORE THROAT, AND RUNNY NOSE X 2 DAYS HEENT Symptoms (Recalled from RN notes): Yes Resp Symptoms (Recalled from RN notes): Yes Skin Symptoms (Recalled from RN notes): No MS Symptoms (Recalled from RN notes): No Functional Status (Recalled from RN notes): WNL History of Present Illness Provider Complaint: Patient states that she has been having nasal congestion and pressure on and off for over a week and thought it was allergies States that for the last couple of day it has got worse and felt like it is moving into her chest like bronchitis States that she has asthma and is bad to move into her chest States that she had a baby 2 mths ago and is no longer breast feeding Related Data Previous Rx's Medication Instructions Recorded norelgestromin 150 mcg-e.estradiol 1 patch transdermal Q7D #3 ea 06/26/22 35 mcg/24 hr weekly transderm patch (Xulane) azithromycin 250 mg tablet See Rx Instructions PO .COMPLEX 5 07/27/22 (Zithromax Z-Clarence) days #6 tabs benzonatate 100 mg capsule 100 mg PO TID PRN cough #30 caps 07/27/22 methylprednisolone 4 mg tablets in See Rx Instructions .Route 07/27/22 a dose pack (Medrol (Clarence)) .COMPLEX 6 days #21 tabs Allergies Allergy/AdvReac Type Severity Reaction Status Date / Time No Known Allergies Allergy Verified 06/26/22 09:02 Worker's Comp Is this a
[2022-07-27 19:59] LABS: UTC Pregnancy Test, Urine Negative (Negative)
[2022-07-27 21:17] LABS: Rhinovirus/Enterovirus Detected (NotDetected)
== END 2022-07-27 20:16 | disposition home or self-care (01) ==
PROVIDERS: Emergency Provider Nurse Practitioner; PCP Internal Medicine Adolescent Medicine
DX: J02.9 Acute pharyngitis, unspecified (principal); R09.89 Other specified symptoms and signs involving the circulatory and respiratory systems; R09.81 Nasal congestion; R05.9 Cough, unspecified; J45.909 Unspecified asthma, uncomplicated; Z79.52 Long term (current) use of systemic steroids; Z79.890 Hormone replacement therapy; Z87.891 Personal history of nicotine dependence
CPT/HCPCS: 81025; 87581; 87632; 87798; 87880; 96372; 99213; C9803; G0463; J0696; U0003; U0005

== ENCOUNTER 2022-08-30 19:32 | Emergency (ER) | payer BC, OTHER, SELFPAY ==
[2022-08-30 19:33] VITALS: BP 118/68; PULSE 84; RESP 18; TEMP 36.9; O2SAT 94; BMI 31.7
[2022-08-30 21:51] LABS: Coronavirus 19, PCR Not Detected (NotDetected); Influenza B, PCR Not Detected (NotDetected)
[2022-08-30 22:00] LABS: Strep Scrn Group A (Rapid) Negative (Negative)
--- NOTE | 2022-08-30 22:07 | HMH.EDURI ---
Discharge Plan Disposition Patient Disposition: Home, Self-Care Prescriptions Prescriptions: New prednisone [prednisone] 20 mg tablet 20 mg PO BID Qty: 10 0RF oseltamivir [Tamiflu] 75 mg capsule 75 mg PO Q12H 5 Days Qty: 10 0RF No Action Xulane 150-35 mcg/24 hr patch weekly 1 patch transdermal Q7D Qty: 3 11RF Rx Instructions: apply once weekly for 3 weeks of a 4-week cycle azithromycin [Zithromax Z-Clarence] 250 mg tablet See Rx Instructions .ROUTE .COMPLEX 5 Days Qty: 6 0RF Rx Instructions: For 250 mg dose pack: take 500 mg today (day 1), then 250 mg for 4 days (days 2-5) benzonatate 100 mg capsule 100 mg PO TID PRN (Reason: cough) Qty: 30 0RF methylprednisolone [Medrol (Clarence)] 4 mg tablets,dose pack See Rx Instructions .Route .COMPLEX 6 Days Qty: 21 0RF Rx Instructions: taper pack; Referrals Follow up/Referrals: Rj Terrell MD [Primary Care Provider] - See instructions Clinical Impressions Clinical Impression: Influenza A Instructions Patient Instructions: DI for Influenza -- Adult Discharge ED Provider: Alfonso Plasencia URI/Sore Throat HPI General Chief Complaint: Upper Respiratory Infection Stated Complaint: Sore throat,cough fever,BROWNING Time Seen by Provider: 08/30/22 22:08 Mode of Arrival: Ambulatory Source of Information: Patient and Medical Record Limitations: No Limitations Description of Symptoms (Recalled from ER Triage Doc. by RN): pt c/o fever,sore throat, cough, body aches,browning History of Present Illness HPI Narrative: fever and sore throat -cough over the last few days Complaint: fever, cough, sore throat and nasal congestion Onset (ago): hour(s) Duration: intermittent Severity: moderate Associated symptoms: denies other symptoms Related Data Previous Rx's Medication Instructions Recorded norelgestromin 150 mcg-e.estradiol 1 patch transdermal Q7D #3 ea 06/26/22 35 mcg/24 hr weekly transderm patch (Xulane) azithromycin 250 mg tablet See Rx Instructions PO .COMPLEX 5 07/27/22 (Zithromax Z-Clarence) days #6 tabs benzonatate 100 mg capsule 100 mg PO TID PRN cough #30 caps 07/27/22 methylprednisolone 4 mg tablets in See Rx Instructions .Route 07/27/22 a dose pack (Medrol (Clarence)) .COMPLEX 6 days #21 tabs oseltamivir 75 mg capsule (Tamiflu) 75 mg PO Q12H 5 days #10 caps 08/30/22 prednisone 20 mg tablet 20 mg PO BID #10 tabs 08/30/22 Allergies Allergy/AdvReac Type Severity Reaction Status Date / Time No Known Allergies Allergy Verified 06/26/22 09:02 [facility] Medical History (Updated 08/30/22 @ 22:36 by Alfonso Plasencia MD) Asthma Social History (Updated 07/27/22 @ 19:18 by Lolita Coley RN) Smoking Status: Former smoker alcohol intake: never substance use type: denies use current occupational status: employed Travel in the last 8 weeks: None household members: family housing: house ROS Obtained: Yes All systems reviewed & no additional complaints except as documented Physical Exam General General appearance: alert Head Head exam: normocephalic Eye Eye exam: Present PERRL and EOMI ENT ENT exam: Present normal oropharynx, mucous membranes moist and TM's normal bilaterally Neck Neck exam: Absent trachea midline Respiratory Respiratory exam: Present normal lung sounds bilaterally; Absent respiratory distress Cardiovascular Cardiovascular exam: Present regular rate Abdominal Exam Abdominal exam: Present soft Extremities Exam Extremities exam: Present full ROM Neurological Exam Neurological exam: Present alert, oriented X3 and CN II-XII intact; Absent motor sensory deficit Psychiatric Psychiatric exam: Present normal affect Skin Skin exam: Absent rash Medical Decision Making Medical Records Medical records reviewed: Yes I reviewed the patient's medical records. Yosef Inquiry Pt receiving controlled substance: No Vital Signs: 08/30/22 19:33 Temperature 98.4 F Temperature Sour
[2022-08-30 22:19] LABS: Influenza A, PCR Detected (NotDetected)
[2022-08-30 22:41] VITALS: BP 120/70; PULSE 82; RESP 18; TEMP 36.6; O2SAT 98
== END 2022-08-30 22:51 | disposition home or self-care (01) ==
PROVIDERS: Emergency Provider Emergency Medicine; PCP Internal Medicine Adolescent Medicine
DX: J10.1 Influenza due to other identified influenza virus with other respiratory manifestations (principal)
CPT/HCPCS: 87430; 94640; 99283; C9803; U0003; U0005

== ENCOUNTER → 2022-12-12 11:38 | Outpatient (CLI) | payer BC, SELFPAY ==
[2022-12-13 09:14] LABS: Progesterone 10.5 ng/mL (.)
== END ==
PROVIDERS: PCP Internal Medicine Adolescent Medicine; Visit Provider Obstetrics & Gynecology
DX: N92.6 Irregular menstruation, unspecified (principal); Z32.00 Encounter for pregnancy test, result unknown
CPT/HCPCS: 36415; 84144; 84702

== ENCOUNTER → 2022-12-22 13:59 | Outpatient (CLI) | payer BC, SELFPAY ==
[2022-12-22 15:03] LABS: Basophils # 0.1 K/mm3 (0-0.2); Basophils % 0.7 % (0.1-2.0); Eosinophils % 7.7 % (0.1-12.0); Hematocrit 40.7 % (37.0-47.0); Hemoglobin 13.4 g/dL (12.2-16.2); Lymphocytes # 2.3 K/mm3 (0.7-4.5); Lymphocytes % 17.7 % (10-50); Mean Corpuscular HGB Conc 33.1 g/dL (31.8-35.4); Mean Corpuscular Hemoglobin 26.9 pg (27.0-31.2); Mean Corpuscular Volume 81.5 fl (81-99); Mean Platelet Volume 7.8 fl (7.4-10.4); Monocytes # 0.7 K/mm3 (0.1-1.0); Monocytes % 5.1 % (1.7-9.3); Neutrophils % 68.8 % (37.0-80.0); Platelet Count 407 K/mm3 (142-424); Red Blood Count 4.99 M/mm3 (4.20-5.40); Red Cell Distribution Width 13.7 % (11.5-17.5)
[2022-12-24 08:21] LABS: HIV Screen 4th Generation wRfx Non Reactive (Non Reactive)
[2022-12-24 10:38] LABS: Rubella Antibodies, IgG <0.90 index (Immune >0.99)
[2022-12-24 12:14] LABS: Rapid Plasma Reagin Ab Titer Non Reactive (NonRea<1:1)
[2023-01-01 23:28] LABS: Hepatitis B Surface Antigen NEGATIVE; Hepatitis C Antibody NON REACTIVE
== END ==
PROVIDERS: PCP Internal Medicine Adolescent Medicine; Visit Provider Obstetrics & Gynecology
DX: Z34.90 Encounter for supervision of normal pregnancy, unspecified, unspecified trimester (principal)
CPT/HCPCS: 36415; 85025; 86593; 86703; 86762; 86850; 87086; 87088; 87186; 87340; 87380; G0432

== ENCOUNTER → 2023-03-12 12:54 | Outpatient (CLI) | payer BC, SELFPAY ==
--- NOTE | 2023-03-12 12:54 | US_ITS ---
PROCEDURE: US OB /MATERNAL DETAIL CLINICAL INDICATION: 20 week anatomy scan COMPARISON: No exams were available for comparison FINDINGS: Single viable intrauterine gestation. Breech position. Placenta: Posteriorplacenta grade 1. There is average amount fluid. The cervix appears satisfactory. Closed and measuring 3.8 centimeters in length. Complete survey performed and was unremarkable on the submitted images as in PACS. No discrete anomalies identified on survey imaging by technologist. Active fetus. Three-vessel cord with satisfactory umbilical cord insertion. 4- chamber heart noted. Survey of brain & ventricles Unremarkable. Face and neck survey unremarkable. Upper lip is seen and appears normal. Nasion is visualized. Diaphragm and chest views unremarkable. Abdomen: Both kidneys noted and unremarkable. Stomach noted and satisfactory. Bladder visualized. Spine: Survey of the spine satisfactory with no anomalies identified nor imaged. Upper, middle and lower spine visualized. Both arms and legs noted. Amniotic Fluid: Adequate. Maternal adnexa: Not visualized on the anatomical scan.. Measurements: Average ultrasound age 20weeks 4days. Gestational Age 20weeks 4days Estimated due date by ultrasound age 1007/26/2023. Estimated weight 364g BPD = 20weeks 3days OFD = 20weeks 4days HC = 19weeks 6days AC = 21weeks FL = 20weeks 4days Growth Percentile= 52Percent Heart Rate = 147bpm Cerebellum = 20weeks 4days Humerus = 21weeks 2days HC/AC is 1.09 CI is 0.78 FL/BPD is 0.71 FL/AC is 0.21 IMPRESSION: Anatomical scan appears normal. The size and dates are appropriate, 79 percentile. Dictated by: Travis Llanes MD 03/12/2023 18:51 Travis Llanes MD in [facility] 03/12/2023 18:51
== END ==
LOC: RAD 12:54
PROVIDERS: PCP Internal Medicine Adolescent Medicine; Visit Provider Obstetrics & Gynecology
DX: Z34.90 Encounter for supervision of normal pregnancy, unspecified, unspecified trimester (principal); Z3A.20 20 weeks gestation of pregnancy
CPT/HCPCS: 76811

== ENCOUNTER → 2023-04-06 07:49 | Outpatient (CLI) | payer BC, SELFPAY ==
[2023-04-06 10:42] LABS: Glucose 1 Hour 164 mg/dL (74-100); Glucose,Fasting 103 mg/dl (74-100)
== END ==
PROVIDERS: PCP Internal Medicine Adolescent Medicine; Visit Provider Obstetrics & Gynecology
DX: Z34.92 Encounter for supervision of normal pregnancy, unspecified, second trimester (principal); Z3A.23 23 weeks gestation of pregnancy
CPT/HCPCS: 36415; 82951

== ENCOUNTER 2023-04-16 13:45 | Outpatient (CLI) | payer BC, SELFPAY ==
[2023-04-16 13:55] VITALS: BMI 35.5
[2023-04-16 14:04] LABS: Microscopic, Urine URINE MICROSCOPIC (MICROSCOPIC)
[2023-04-16 14:05] LABS: Appearance,Urine CLEAR (Clear); Bilirubin,Urine Negative (Negative); Blood, Urine TRACE-I (Negative); Color,Urine YELLOW (Yellow); Glucose,Urine (UA) TRACE (Negative); Ketones,Urine Negative (Negative); Leukocyte Esterase,Urine TRACE (Negative); Nitrate,Urine Negative (Negative); Protein,Urine Negative (Negative); Specific Gravity, Urine <= 1.005 (1.005-1.030); Urobilinogen,Urine 0.2 EU/dl (0.2)
[2023-04-16 14:16] LABS: Bacteria,Urine Trace /lpf; RBC,Urine Occasional #/hpf (0-3); Renal Epithelial Cells,Urine Occasional #/lpf (0)
[2023-04-16 14:17] LABS: Barbiturates Screen,Urine Negative ng/ml (<200); Benzodiazepines Screen,Urine Negative ng/ml (<200)
[2023-04-16 14:18] LABS: Amphetamine/Metha Screen,Urine Negative ng/ml (<1000)
[2023-04-16 14:19] LABS: Cannabinoid Screen,Urine Negative ng/ml (<50); Cocaine Screen,Urine Negative ng/ml (<300)
[2023-04-16 14:20] LABS: Methadone Screen,Urine Negative ng/ml (<300)
[2023-04-16 14:21] LABS: Opiate Screen,Urine Negative ng/ml (<300); Phencyclidine Screen,Urine Negative ng/ml (<25)
[2023-04-16 16:15] LABS: Fetal Fibronectin (Rapid) Negative (Negative)
[2023-04-16 16:17] VITALS: BP 125/74; PULSE 88; RESP 18; TEMP 36.6; O2SAT 98; BMI 35.5
== END 2023-04-16 16:40 | disposition home or self-care (01) ==
LOC: OBOUT 13:46 → OB 13:47
PROVIDERS: PCP Internal Medicine Adolescent Medicine; Visit Provider Obstetrics & Gynecology
DX: O47.02 False labor before 37 completed weeks of gestation, second trimester (principal); Z3A.25 25 weeks gestation of pregnancy
CPT/HCPCS: 80305; 81001; 82731; 96365; 96372; G0463

== ENCOUNTER 2023-04-17 23:55 | Inpatient (IN) | payer BC, SELFPAY ==
[2023-04-17 22:06] VITALS: BMI 34.7
[2023-04-17 22:15] LABS: Microscopic, Urine URINE MICROSCOPIC (MICROSCOPIC)
[2023-04-17 22:28] VITALS: BP 124/68; PULSE 78; RESP 18; TEMP 36.7; O2SAT 95; BMI 34.7
[2023-04-17 22:40] LABS: Appearance,Urine CLEAR (Clear); Bilirubin,Urine Negative (Negative); Blood, Urine TRACE-I (Negative); Color,Urine YELLOW (Yellow); Glucose,Urine (UA) Negative (Negative); Ketones,Urine Negative (Negative); Leukocyte Esterase,Urine Negative (Negative); Nitrate,Urine Negative (Negative); Protein,Urine Negative (Negative); Specific Gravity, Urine 1.015 (1.005-1.030); Urobilinogen,Urine 0.2 EU/dl (0.2)
[2023-04-17 22:46] LABS: POC Glucose,Bedside 96 (70-110)
[2023-04-17 23:00] LABS: Amorphous Sediment,Urine Trace /lpf; Bacteria,Urine Trace /lpf
[2023-04-17 23:43] LABS: Amphetamine/Metha Screen,Urine Negative ng/ml (<1000); Benzodiazepines Screen,Urine Negative ng/ml (<200)
[2023-04-17 23:44] LABS: Barbiturates Screen,Urine Negative ng/ml (<200)
[2023-04-17 23:45] LABS: Cannabinoid Screen,Urine Positive ng/ml (<50); Cocaine Screen,Urine Negative ng/ml (<300)
[2023-04-17 23:46] LABS: Methadone Screen,Urine Negative ng/ml (<300)
[2023-04-17 23:47] LABS: Opiate Screen,Urine Negative ng/ml (<300); Phencyclidine Screen,Urine Negative ng/ml (<25)
[2023-04-18 09:57] LABS: POC Glucose,Bedside 149 (70-110)
--- NOTE | 2023-04-18 12:40 | US_ITS ---
PROCEDURE INFORMATION: Exam: US After First Trimester, Transabdominal Exam date and time: 04/18/2023 1:27 PM Age: 23 years old Clinical indication: Lmp or gestational age (in weeks): 25w 6d; Antepartum complications; Other: Premature contractions; ; Additional info: Pre-term- elizabeth, placenta TECHNIQUE: Imaging protocol: Real-time transabdominal obstetrical ultrasound of the maternal pelvis and a second or third trimester with image documentation. COMPARISON: US OB /MATERNAL DETAIL 03/12/2023 1:02 PM FINDINGS: Gestation: Single live intrauterine gestation. heart rate: Heart rate 161 bpm. presentation: Breech Placenta: Unremarkable. No subchorionic bleed. Placenta is posterior. No previa Amniotic fluid: Amniotic fluid is normal for gestational age. Amniotic fluid index: ELIZABETH 14.19 cm. ANATOMY: midline falx: Normal upper lip and nose: Normal heart four-chamber view, heart size and position: Normal right ventricular outflow tract: Obscured left ventricular outflow tract: Normal kidneys: Normal Umbilical cord insertion site into the abdomen: Normal Umbilical cord vessel number: Three-vessel cord extremities: Normal BIOMETRY: Gestational age (AUA): Estimated gestational age 26 weeks 1 day. Estimated due date (AUA): TONYA 07/24/2023. Estimated weight: Estimated weight 2 lb. Biparietal diameter (BPD): BPD 6.5 cm Head circumference (HC): Head circumference 23.58 cm Abdominal circumference (AC): Abdominal circumference 21.94 cm. Femur length (FL): Femur length 4.77 cm. MATERNAL: Uterus: Unremarkable. Cervix: Measures 4.45 cm. Right ovary/adnexa: Obscured by lack of adequate acoustic window. Left ovary/adnexa: Obscured by lack of adequate acoustic window. Intraperitoneal space: No intraperitoneal free fluid. IMPRESSION: Single live intrauterine gestation in breech presentation. Limited survey demonstrates no abnormality.
--- NOTE | 2023-04-18 12:47 | EXP.HP ---
History of Present Illness *Admission Date: 04/17/23 *Reason for visit:: contractions *History of present illness: 23 yo @ 25 2 admitted with contractions She has had intermittent contractions over the past week and has been evaluated in triage twice before Previous assessments included brethine and IV fluid administration, but she did not respond to either of those this time She was admitted for observation and started on PO procardia MgSO4 was deferred because she is not dilated, but she was given Celestone assessment with NST has been reassuring Other issues include recent diagnosis of GDMA1 and a h/o labor with previous (term delivery) She also reports intense hip pain with movement over the past 2-3 weeks [facility] Disclaimer: The information contained in this section may have been updated after the patient was seen, as this information can be updated by other users. Medical History Asthma Positive urine drug screen THC Surgical History No history of previous surgery Social History Smoking Status: Former smoker alcohol intake: never substance use type: denies use current occupational status: employed Travel in the last 8 weeks: None household members: family housing: house Review of Systems Review of Systems Review of systems:: pertinent systems reviewed and negative unless documented below Constitutional Constitutional: Denies headache(s) ENT Ears, Nose, Mouth, and Throat: Denies headache(s) *Genitourinary Genitourinary: Denies abnormal vaginal bleeding Comments: + contractions *Musculoskeletal Musculoskeletal: Reports back pain and Reports radiating pain into limb *Neurologic Neurologic: Denies headache(s) and Denies other visual disturbances Meds Home Medications and Allergies Home Medications Medication Instructions Recorded Confirmed Type PNV 153-FA 400 mcg-om3 35 mg-dha 1 tab PO DAILY 12/22/22 04/18/23 History 25 mg-epa 5 mg-fish oil chew tablet ( Gummies) albuterol sulfate 90 mcg/actuation 2 puff inhalation Q4-6H PRN Asthma 02/16/23 04/18/23 History aerosol inhaler cetirizine 10 mg tablet (Zyrtec) 10 mg PO DAILY PRN allergies 02/16/23 04/18/23 History New Prescriptions to Start Prescriptions: Allergies Allergy/AdvReac Type Severity Reaction Status Date / Time No Known Allergies Allergy Verified 04/06/23 09:22 Exam Data for Last 24 hours Vital signs and Labs for Last 24 Hours: Temp Pulse Resp BP Pulse Ox O2 Del Method 98.0 F 78 18 124/68 95 Room Air 04/17/23 22:28 04/17/23 22:28 04/17/23 22:28 04/17/23 22:28 04/17/23 22:28 04/17/23 22:28 Laboratory Results - last 24 hr 04/17/23 22:09: Urine Color Yellow, Urine Appearance Clear, Urine pH 6.0, Ur Specific [place] 1.015, Urine Protein Negative, Urine Glucose (UA) Negative, Urine Ketones Negative, Urine Blood Trace-i, Urine Nitrate Negative, Urine Bilirubin Negative, Urine Urobilinogen 0.2, Ur Leukocyte Esterase Negative, Urine RBC 3-5, Urine WBC None, Ur Squamous Epith Cells 3-5, Amorphous Sediment Trace, Urine Bacteria Trace, Urine Opiates Screen Negative, Urine Methadone Screen Negative, Ur Barbituates Screen Negative, Ur Phencyclidine Scrn Negative, Ur Amphetamines Screen Negative, U Benzodiazepines Scrn Negative, Urine Cocaine Screen Negative, U Marijuana (THC) Screen Positive H 04/17/23 22:39: POC Glucose 96 04/18/23 09:49: POC Glucose 149 H I & O for Last 24 hours: Intake & Output 04/16/23 04/17/23 04/18/23 04/19/23 11:59 11:59 11:59 11:59 Weight 202 lb 0.012 oz Constitutional Constitutional: no acute distress *Routine HEENT Exam Head: Present normocephalic Eye: Absent conjunctival icterus or scleral injection ENT: Present mucous membranes
[2023-04-18 14:05] LABS: Coronavirus 19, PCR Not Detected (NotDetected); Influenza A, PCR Not Detected (NotDetected); Influenza B, PCR Not Detected (NotDetected)
[2023-04-19 08:10] VITALS: BP 108/56; PULSE 99; RESP 17; TEMP 36.7; O2SAT 100
--- NOTE | 2023-04-19 13:59 | EXP.ACUTE.PN ---
Subjective *Date: 04/19/23 *Time: 13:59 Interval history: 25 12/16 Admitted with regular, painful contractions No vaginal bleeding or LOF; no abdominal pain She reports continued regular contractions, with oscillating level of intensity She was started on PO procardia 20mg q6 and the TOCO has shown an increase in contraction activity 60-90 minutes before Procardia dose is due Magnesium tocolysis deferred because cervix closed/thick She is s/p Celestone x 2, with possible increase in contractions following steroid doses Ultrasound yesterday did not show any evidence of ROM or placental abruption heart tracing has remained reassurring Medical Exam Vital signs and Labs for Last 24 Hours: Vital Signs Temp Pulse Resp BP Pulse Ox O2 Del Method 04/19/23 08:10 98.0 F 99 H 17 108/56 L 100 Room Air Laboratory Results - last 24 hr 04/18/23 13:08: SARS-CoV-2 (PCR) Not detected, Influenza A Untype (PCR) Not detected, Influenza Type B (PCR) Not detected I & O for Labs for Last 24 Hours: Intake & Output 04/17/23 04/18/23 04/19/23 04/20/23 11:59 11:59 11:59 11:59 Weight 202 lb 0.012 oz Respiratory: Present CTA bilaterally; Absent respiratory distress or wheezes Cardiac: Present Reg Rate and Rhythm GI: Present soft; Absent distention or tenderness (female): Present normal external exam Comment:: cervix closed/thick Extremities: Absent edema Skin: Absent rash Assessment and Plan *Assessment and plan (1) 25 weeks gestation of : Status: Acute Category: Medical Code(s): Z3A.25 - 25 weeks gestation of (2) uterine contractions: Status: Acute Category: Medical Code(s): O47.00 - False labor before 37 completed weeks of gestation, unspecified trimester (3) White classification A1 gestational diabetes mellitus (GDM): Status: Acute Category: Medical Code(s): O24.410 - Gestational diabetes mellitus in , diet controlled (4) Supervision of with history of pre-term labor: Status: Acute Category: Medical Code(s): O09.219 - Supervision of with history of pre-term labor, unspecified trimester Plan Continue Procardia 20mg PO q 6 s/p celestone x 2 Continued monitoring warranted at this time with contraction pattern Will evaluate for possible discharge tomorrow with outpatient MFM consult
[2023-04-19 14:44] LABS: Basophils % 0.1 % (0.1-2.0); Eosinophils % 0.2 % (0.1-12.0); Hemoglobin 11.1 g/dL (12.2-16.2); Lymphocytes # 1.4 K/mm3 (0.7-4.5); Lymphocytes % 8.4 % (10-50); Mean Corpuscular HGB Conc 31.8 g/dL (31.8-35.4); Mean Corpuscular Hemoglobin 26.2 pg (27.0-31.2); Mean Corpuscular Volume 82.4 fl (81-99); Mean Platelet Volume 8.2 fl (7.4-10.4); Monocytes # 0.7 K/mm3 (0.1-1.0); Monocytes % 3.9 % (1.7-9.3); Neutrophils # 14.7 K/mm3 (1.8-7.8); Neutrophils % 87.3 % (37.0-80.0); Platelet Count 322 K/mm3 (142-424); Red Blood Count 4.25 M/mm3 (4.20-5.40); Red Cell Distribution Width 14.3 % (11.5-17.5); White Blood Count 16.8 K/mm3 (4.8-10.8)
[2023-04-19 14:46] LABS: MANUAL DIFFERENTIAL MANUAL DIFFERENTIAL (MANUAL DIFF)
[2023-04-19 15:28] LABS: Hypochromasia 1+; Lymphocytes % 12 % (10-50); Monocytes % 1 % (2-9); Neutrophils % 87 % (42-76); Platelet Estimate Normal; Total Cells Counted 100
[2023-04-20 06:39] LABS: Basophils % 0.1 % (0.1-2.0); Eosinophils # 0.1 K/mm3 (0.0-0.4); Eosinophils % 0.3 % (0.1-12.0); Hematocrit 34.7 % (37.0-47.0); Hemoglobin 11.3 g/dL (12.2-16.2); Lymphocytes # 2.7 K/mm3 (0.7-4.5); Lymphocytes % 16.3 % (10-50); Mean Corpuscular HGB Conc 32.5 g/dL (31.8-35.4); Mean Corpuscular Hemoglobin 26.7 pg (27.0-31.2); Mean Corpuscular Volume 82.2 fl (81-99); Mean Platelet Volume 8.5 fl (7.4-10.4); Monocytes # 0.9 K/mm3 (0.1-1.0); Monocytes % 5.8 % (1.7-9.3); Neutrophils # 12.6 K/mm3 (1.8-7.8); Neutrophils % 77.5 % (37.0-80.0); Platelet Count 336 K/mm3 (142-424); Red Blood Count 4.23 M/mm3 (4.20-5.40); Red Cell Distribution Width 14.4 % (11.5-17.5); White Blood Count 16.2 K/mm3 (4.8-10.8)
[2023-04-20 06:43] LABS: MANUAL DIFFERENTIAL MANUAL DIFFERENTIAL (MANUAL DIFF)
[2023-04-20 06:56] LABS: Lymphocytes % 18 % (10-50); Monocytes % 1 % (2-9); Neutrophils % 81 % (42-76); Platelet Estimate Normal; RBC Morphology Normal; Total Cells Counted 100
[2023-04-20 08:00] VITALS: BP 107/56; PULSE 96; RESP 18; TEMP 36.8; O2SAT 98
--- NOTE | 2023-04-20 11:58 | EXP.DC.SUM ---
General Admission date:: 04/17/23 Discharge date: 04/20/23 HPI HPI HPI: 23 yo @ 25 11/18 admitted with contractions She has had intermittent contractions over the past week and has been evaluated in triage twice before Previous assessments included brethine and IV fluid administration, but she did not respond to either of those this time She was admitted for observation and started on PO procardia MgSO4 was deferred because she is not dilated, but she was given Celestone assessment with NST has been reassuring Other issues include recent diagnosis of GDMA1 and a h/o labor with previous (term delivery) She also reports intense hip pain with movement over the past 2-3 weeks Hospital Course Hospital Course Hospital Course: She continued to contract regularly after admission She was given Celestone x 2 on 04/18 & 04/19 Contractions decreased in intensity on Procardia 20mg q6 but frequency was still present Cervix remained closed She is discharged home to continue the procardia q6, and will also be given Indomethacin PO x 48 hours She has MFM consult scheduled in 1 week Exam Data for Last 24 hours Vital signs and Labs for Last 24 Hours: Temp Pulse Resp BP Pulse Ox O2 Del Method 98.3 F 96 H 18 107/56 L 98 Room Air 04/20/23 08:00 04/20/23 08:00 04/20/23 08:00 04/20/23 08:00 04/20/23 08:00 04/20/23 08:00 Laboratory Results - last 24 hr 04/19/23 14:22: WBC 16.8 H, RBC 4.25, Hgb 11.1 L, Hct 35.0 L, MCV 82.4, MCH 26.2 L, MCHC 31.8, RDW 14.3, Plt Count 322, MPV 8.2, Neut % (Auto) 87.3 H, Lymph % (Auto) 8.4 L, [place] % (Auto) 3.9, Eos % (Auto) 0.2, Baso % (Auto) 0.1, Neut # (Auto) 14.7 H, Lymph # (Auto) 1.4, [place] # (Auto) 0.7, Eos # (Auto) 0.0, Baso # (Auto) 0.0, Total Counted 100, Neutrophils % (Manual) 87 H, Lymphocytes % (Manual) 12, Monocytes % (Manual) 1 L, Platelet Estimate Normal, Hypochromasia 1+ 04/20/23 06:24: WBC 16.2 H, RBC 4.23, Hgb 11.3 L, Hct 34.7 L, MCV 82.2, MCH 26.7 L, MCHC 32.5, RDW 14.4, Plt Count 336, MPV 8.5, Neut % (Auto) 77.5, Lymph % (Auto) 16.3, [place] % (Auto) 5.8, Eos % (Auto) 0.3, Baso % (Auto) 0.1, Neut # (Auto) 12.6 H, Lymph # (Auto) 2.7, [place] # (Auto) 0.9, Eos # (Auto) 0.1, Baso # (Auto) 0.0, Total Counted 100, Neutrophils % (Manual) 81 H, Lymphocytes % (Manual) 18, Monocytes % (Manual) 1 L, Platelet Estimate Normal, RBC Morphology Normal I & O for Last 24 hours: Intake & Output 04/17/23 04/18/23 04/19/23 04/20/23 11:59 11:59 11:59 11:59 Weight 202 lb 0.012 oz Constitutional Constitutional: no acute distress *Routine HEENT Exam Head: Present normocephalic Eye: Absent conjunctival icterus or scleral injection ENT: Present mucous membranes moist *Routine Neck Exam Neck: Present supple *Routine Respiratory Exam Respiratory: Present CTA bilaterally *Routine Cardiovascular Exam Cardiovascular: Present RRR *Routine Abdominal Exam Abdominal: Present soft; Absent tenderness or distended *Routine Rectal Exam Patient deferred: visual exam and digital exam *Routine Exam Comments: cervix closed *Routine Extremities Exam Extremities: Absent edema *Routine Skin Exam Skin: Present intact and dry Comments: Incision intact without erythema or purulent drainage *Routine Neurological Exam Neurological: Present alert and oriented X3 Routine Psychiatric Exam Psychiatric: Present normal affect; Absent depressed Results Data Completed and Pending Labs on day of discharge: Labs from last 24 hours 04/20/23 04/19/23 06:24 14:22 WBC 16.2 H 16.8 H RBC 4.23 4.25 Hgb 11.3 L 11.1 L Hct 34.7 L 35.0 L MCV 82.2 82.4 MCH 26.7 L 26.2 L MCHC 32.5 31.8 RDW 14.4 14.3 Plt Count 336 322 MPV 8.5 8.2 Neut % (Auto) 77.5 87.3 H Lymph % (Auto) 16.3 8.4 L [place] % (Auto) 5.8 3.9 Eos % (Auto) 0.3 0.2 Baso % (Auto) 0.1 0.1 Neut # (Auto) 12.6 H 14.7 H Lymph # (Auto) 2.7 1.4 [place] # (Auto) 0.9 0.7 Eos # (Auto) 0.1 0.0 Bas
== END 2023-04-20 15:00 | disposition home or self-care (01) | DRG 833 ==
LOC: OBOUT 23:57 → OB 23:57
PROVIDERS: Admitting Provider Obstetrics & Gynecology; PCP Internal Medicine Adolescent Medicine; Visit Provider Obstetrics & Gynecology
DX: O47.02 False labor before 37 completed weeks of gestation, second trimester (principal); Z3A.25 25 weeks gestation of pregnancy; Z87.891 Personal history of nicotine dependence; O24.420 Gestational diabetes mellitus in childbirth, diet controlled
CPT/HCPCS: 36415; 59025; 76816; 80305; 81001; 82962; 85007; 85025; 87636; 96360; 96372

== ENCOUNTER → 2023-05-05 12:29 | Outpatient (CLI) | payer BC, SELFPAY ==
--- NOTE | 2023-05-05 12:32 | US_ITS ---
PROCEDURE: US OB FOLLOW UP CLINICAL INDICATION: to check cervical length COMPARISON: US US OB FOLLOW UP from 04/18/2023 FINDINGS: Transabdominal and transvaginal images of the uterus and cervix were obtained. The following parameters are obtained: From her established due date she is 28weeks 2days Viable fetus in the cephalic presentation with a posterior placenta grade 1. Cervix: 2.9 cm there is trace funneling of the cervix. The cervix was seen transvaginally. With Valsalva the cervix remains at 2.9 cm. Transabdominal cervical measurement 2 weeks ago showed the cervix at 4.5 cm. heart rate: 149bpm bpm. BPD: 28weeks OFD: 27weeks 1day HC: 27weeks 6days AC: 29weeks FL: 28weeks 4days 51 percentile HC/AC: 1.03 Cephalic index: 0.79 FL/BPD: 0.77 FL/AC: 0.22 Amniotic fluid index: 15.64cm No obvious anomalies evident. Diaphragm, stomach, bladder, three-vessel cord, cord insertion appear normal. Kidneys appear normal but there is mild bilateral renal pyelectasis measuring 4.2 mm and 3.5 mm. IMPRESSION: 1. Fetus in the cephalic presentation with a posterior placenta grade 1. 2. The fluid is within normal limits. 3. There has been good interval growth. 4. The cervix measures 2.9 cm and stays the same length with Valsalva. The cervix appears to have lost 1.6 cm of length since her last ultrasound done 04/18/2023 5. There continues to be bilateral mild renal pyelectasis. Dictated by: Travis Llanes MD 05/05/2023 15:38 Travis Llanes MD in OV 05/05/2023 15:38
== END ==
LOC: RAD 12:29
PROVIDERS: PCP Internal Medicine Adolescent Medicine; Visit Provider Obstetrics & Gynecology
DX: O26.873 Cervical shortening, third trimester (principal); Z3A.28 28 weeks gestation of pregnancy
CPT/HCPCS: 76816

== ENCOUNTER 2023-05-25 16:58 | Outpatient (CLI) | payer BC, SELFPAY ==
[2023-05-25 17:53] VITALS: BP 118/71; PULSE 76; RESP 20; TEMP 37; O2SAT 97; BMI 35.0
== END 2023-05-25 19:21 | disposition home or self-care (01) ==
LOC: OBOUT 17:01 → OB 17:31
PROVIDERS: PCP Internal Medicine Adolescent Medicine; Visit Provider Obstetrics & Gynecology
DX: O47.03 False labor before 37 completed weeks of gestation, third trimester (principal); Z3A.31 31 weeks gestation of pregnancy; E86.0 Dehydration
CPT/HCPCS: 59025; 96365; G0463

== ENCOUNTER 2023-06-04 11:23 | Outpatient (CLI) | payer BC, SELFPAY ==
[2023-06-04 11:57] VITALS: BMI 34.8
[2023-06-04 12:05] VITALS: BP 130/73; PULSE 97; RESP 18; TEMP 36.9; O2SAT 95; BMI 34.8
[2023-06-04 13:05] LABS: Fetal Fibronectin (Rapid) Negative (Negative)
== END 2023-06-04 13:50 | disposition home or self-care (01) ==
LOC: OBOUT 11:25 → OB 11:26
PROVIDERS: Obstetrics & Gynecology; PCP Internal Medicine Adolescent Medicine; Visit Provider Obstetrics & Gynecology
DX: O26.893 Other specified pregnancy related conditions, third trimester (principal); Z3A.32 32 weeks gestation of pregnancy
CPT/HCPCS: 59025; 82731; 96365; G0463

== ENCOUNTER 2023-06-11 10:46 | Outpatient (CLI) | payer BC, SELFPAY ==
[2023-06-11 11:06] VITALS: BMI 35.0
[2023-06-11 11:15] VITALS: BMI 35.0
== END 2023-06-11 12:33 | disposition home or self-care (01) ==
LOC: OBOUT 10:49 → OB 10:50
PROVIDERS: PCP Internal Medicine Adolescent Medicine; Visit Provider Nurse Practitioner Obstetrics & Gynecology
DX: O26.893 Other specified pregnancy related conditions, third trimester (principal); Z3A.33 33 weeks gestation of pregnancy; E86.0 Dehydration
CPT/HCPCS: 59025; 96365; G0463

== ENCOUNTER 2023-07-02 12:56 | Inpatient (IN) | payer BC, SELFPAY ==
[2023-07-02 10:51] VITALS: BP 139/75; PULSE 88; RESP 17; TEMP 37.2; O2SAT 97; BMI 35.9
[2023-07-02 12:57] LABS: Basophils # 0.1 K/mm3 (0-0.2); Basophils % 0.4 % (0.1-2.0); Eosinophils # 0.5 K/mm3 (0.0-0.4); Eosinophils % 3.6 % (0.1-12.0); Hematocrit 38.9 % (37.0-47.0); Hemoglobin 12.7 g/dL (12.2-16.2); Lymphocytes # 2.1 K/mm3 (0.7-4.5); Lymphocytes % 14.3 % (10-50); Mean Corpuscular HGB Conc 32.6 g/dL (31.8-35.4); Mean Corpuscular Hemoglobin 25.4 pg (27.0-31.2); Mean Corpuscular Volume 78.1 fl (81-99); Mean Platelet Volume 9.1 fl (7.4-10.4); Monocytes # 0.7 K/mm3 (0.1-1.0); Monocytes % 4.7 % (1.7-9.3); Platelet Count 375 K/mm3 (142-424); Red Blood Count 4.98 M/mm3 (4.20-5.40); White Blood Count 14.3 K/mm3 (4.8-10.8)
[2023-07-02 13:57] LABS: POC Glucose,Bedside 97 (70-110)
--- NOTE | 2023-07-02 14:27 | P.PNANES_ITS ---
[facility] Disclaimer: The information contained in this section may have been updated after the patient was seen, as this information can be updated by other users. Medical History Asthma GDM, class A2 Positive urine drug screen THC Surgical History No history of previous surgery Social History Smoking Status: Former smoker alcohol intake: never substance use type: denies use current occupational status: previously employed Travel in the last 8 weeks: None household members: family housing: house [facility] Anesthesia Checklist Patient Identification Patient Identification: Verbal (Name & ) Structural Data Admitted From: Inpatient Planned Operative Procedure/s: labor epidural Consent for Planned Operative Procedure(s) Verified: Yes Airway Assessment Mallampati Score:: Class II C-Spine Mobility Assessed: Yes TMJ Mobility Assessed: Yes Dentition: Good Dentition Neurological Assessment Level of Consciousness: Awake, Alert and Appropriate Anesthesia Plan Anesthesia Risk discussed: Yes Anesthesia Plan: Verified ASA Class: II Anesthesia Type: Epidural
--- NOTE | 2023-07-02 14:30 | HMH.PHAINT1 ---
Pharmacy Intervention Comments: MEDICATION RECONCILIATION COMPLETED ON PATIENT USING EXTERNAL FILL HISTORY FROM PHARMACY. -JOVANI VELAZQUEZ, SHAUND
--- NOTE | 2023-07-02 15:15 | EXP.OB.APHP ---
OB - H&P: HPI Antepartum History of Present Illness Chief complaint: Regular, painful uterine contractions History of present illness: Mrs Gabi Marinelli is a 23 yo at 36w0d who presented to [facility] Labor and Delivery from the office for contractions and cervical exam, . She has had good care. She was diagnosed with gestational diabetes and has been taking Glyburide 2.5 mg PO BID. Blood sugar has been suboptimally controlled. History of Present Criteria for establishing EDC:: based on 1st trimester US only care: good care Ultrasounds: normal mid trimester US Obstetrical complications: gestational diabetes and labor Medical complications: none Labs Blood type: O (+) positive Rubella: nonimmune RPR/VDRL: nonreactive GBS status: unknown HBsAG: negative [facility] Disclaimer: The information contained in this section may have been updated after the patient was seen, as this information can be updated by other users. Medical History (Updated 07/02/23 @ 18:10 by Emily Rivera DO) 36 weeks gestation of Asthma GDM, class A2 Positive urine drug screen labor Surgical History No history of previous surgery Social History Smoking Status: Former smoker alcohol intake: never substance use type: denies use current occupational status: previously employed Travel in the last 8 weeks: None household members: family housing: house Meds Home Medications and Allergies Home Medications Medication Instructions Recorded Confirmed Type PNV 153-FA 400 mcg-om3 35 mg-dha 1 tab PO DAILY Supplement 12/22/22 07/02/23 History 25 mg-epa 5 mg-fish oil chew tablet ( Gummies) albuterol sulfate 90 mcg/actuation 2 puff inhalation Q4HP PRN 02/16/23 07/02/23 History aerosol inhaler Shortness Of Breath cetirizine 10 mg tablet (Zyrtec) 10 mg PO DAILY Allergy Symptoms 02/16/23 07/02/23 History blood sugar diagnostic (OneTouch 07/02/23 07/02/23 History Ultra Test strips) glyburide 2.5 mg tablet 2.5 mg PO BID Diabetes 07/02/23 07/02/23 History nifedipine 10 mg capsule 20 mg PO Q6H High Blood Pressure 07/02/23 07/02/23 History New Prescriptions to Start Prescriptions: Allergies Allergy/AdvReac Type Severity Reaction Status Date / Time No Known Allergies Allergy Verified 07/02/23 09:10 OB - H&P: Exam Physical Exam Vital signs: Temp Pulse Resp BP Pulse Ox O2 Del Method 99.0 F 88 17 139/75 97 Room Air 07/02/23 10:51 07/02/23 10:51 07/02/23 10:51 07/02/23 10:51 07/02/23 10:51 07/02/23 10:51 Routine HEENT Exam Head: Present normocephalic and atraumatic Eye: Absent conjunctivae pink ENT: Present mucous membranes moist Routine Respiratory Exam Present CTA bilaterally and normal respiratory effort Routine Cardiovascular Exam Present RRR Routine Abdominal Exam Present soft (Gravid); Absent tenderness Routine Rectal Exam Patient deferred: visual exam Routine Exam External: Present normal urethra appearance; Absent erythema, lesions or lacerations Routine Extremities Exam Present edema (+1 bilateral lower extremity edema) and full ROM; Absent calf tenderness Routine Neurological Exam Present alert, oriented X3 and moving all extremities Routine Psychiatric Exam Present normal affect and cooperative Detailed Labor and Delivery Exam Dilation (cm): 4 Effacement (%): 8 Cervix position: posterior station: -2 Consistency: soft Membranes: intact Baseline heart rate: 150 monitor accelerations: Present monitor decelerations: None longterm variability: Moderate (11-25) Contraction frequency (min): 2 OB - Results Labs Labs: Short CBC 07/02/23 Range/Units 12:46 WBC 14.3 H (4.8-10.8) K/mm3 Hgb 12.7 (12.2-16.2) g/dL Hct 38.9 (37.0-47.0) % Plt Count 3
[2023-07-02 16:23] LABS: Microscopic, Urine URINE MICROSCOPIC (MICROSCOPIC)
[2023-07-02 16:27] LABS: Appearance,Urine CLEAR (Clear); Bilirubin,Urine Negative (Negative); Blood, Urine Negative (Negative); Color,Urine YELLOW (Yellow); Glucose,Urine (UA) TRACE (Negative); Ketones,Urine Negative (Negative); Leukocyte Esterase,Urine 2+ (Negative); Nitrate,Urine Negative (Negative); PH,Urine 6.5 (5.0-8.5); Protein,Urine Negative (Negative); Urobilinogen,Urine 0.2 EU/dl (0.2)
[2023-07-02 16:38] LABS: Barbiturates Screen,Urine Negative ng/ml (<200)
[2023-07-02 16:39] LABS: Benzodiazepines Screen,Urine Negative ng/ml (<200)
[2023-07-02 16:40] LABS: Amphetamine/Metha Screen,Urine Negative ng/ml (<1000); Methadone Screen,Urine Negative ng/ml (<300)
[2023-07-02 16:41] LABS: Cannabinoid Screen,Urine Negative ng/ml (<50)
[2023-07-02 16:42] LABS: Cocaine Screen,Urine Negative ng/ml (<300); Opiate Screen,Urine Negative ng/ml (<300)
[2023-07-02 16:43] LABS: Phencyclidine Screen,Urine Negative ng/ml (<25)
[2023-07-02 16:49] LABS: Bacteria,Urine Trace /lpf
--- NOTE | 2023-07-02 18:11 | EXP.DN ---
Delivery Note Delivery Date:: 07/02/23 Delivery Time:: 16:40 Anesthesia Type: Epidural Was labor medically induced?: No Gestational age (weeks): 36 Infant delivered prior to 39 weeks?: Yes Justification for early elective delivery:: Active Labor Infant Gender: Female at 1 minute: 6 at 5 minutes: 8 LAC or MLE?: LAC Delivery Procedure:: Mom complete with epidural. Pushed for approximately one contraction. Head delivered spontaneously over intact perineum in PAT position. No nuchal cord. Anterior shoulder delivered spontaneously. Posterior shoulder and remainder of body delivered spontaneously. Baby placed on maternal abdomen, mouth and nares bulb suctioned, warmed/dried and stimulated. Delayed cord clamping was performed for 60 seconds. Cord was clamped and cut by father of baby. Cord blood was obtained. Placenta delivered spontaneously and intact. Placenta will be sent to pathology for review. Second degree perineal laceration repaired with 3-0 Vicryl. Hemostasis noted. Mom was doing well after delivery. Baby was taken to warmer for assessment and respiratory support. Live female baby (baby's name is Jocelin) APGARs 6, 8 EBL 150 mL Placental Delivery Description: Spontaneous
[2023-07-03 04:20] VITALS: BP 130/74; PULSE 77; RESP 17; TEMP 36.4; O2SAT 98
[2023-07-03 04:44] LABS: Basophils # 0.1 K/mm3 (0-0.2); Basophils % 0.4 % (0.1-2.0); Eosinophils # 0.7 K/mm3 (0.0-0.4); Eosinophils % 5.1 % (0.1-12.0); Hematocrit 35.5 % (37.0-47.0); Lymphocytes # 2.8 K/mm3 (0.7-4.5); Lymphocytes % 21.4 % (10-50); Mean Corpuscular HGB Conc 31.4 g/dL (31.8-35.4); Mean Corpuscular Hemoglobin 24.8 pg (27.0-31.2); Mean Corpuscular Volume 78.8 fl (81-99); Mean Platelet Volume 9.6 fl (7.4-10.4); Monocytes # 0.9 K/mm3 (0.1-1.0); Monocytes % 6.6 % (1.7-9.3); Neutrophils # 8.8 K/mm3 (1.8-7.8); Neutrophils % 66.5 % (37.0-80.0); Platelet Count 339 K/mm3 (142-424); Red Blood Count 4.51 M/mm3 (4.20-5.40); Red Cell Distribution Width 14.2 % (11.5-17.5); White Blood Count 13.3 K/mm3 (4.8-10.8)
[2023-07-03 04:52] LABS: Hemoglobin 11.3 g/dL (12.2-16.2)
--- NOTE | 2023-07-03 05:25 | EXP.DC.SUM ---
General Admission date:: 07/02/23 Discharge date: 07/03/23 HPI HPI HPI: Mrs Gabi Marinelli is a 23 yo at 36w0d who presented to [facility] Labor and Delivery from the office for contractions and cervical exam, . She has had good care. She was diagnosed with gestational diabetes and has been taking Glyburide 2.5 mg PO BID. Blood sugar has been suboptimally controlled. History of Present Criteria for establishing EDC:: based on 1st trimester US only care: good care Ultrasounds: normal mid trimester US Obstetrical complications: gestational diabetes and labor Medical complications: none Labs Blood type: O (+) positive Rubella: nonimmune RPR/VDRL: nonreactive GBS status: unknown HBsAG: negative Hospital Course Hospital Course Hospital Course: Ms. Gabi Marinelli is a 23-year-old day #1 from a normal spontaneous vaginal delivery. She received care with Dr. Quintero and it was complicated by gestational diabetes, managed with glyburide. She has had a routine course and she desires discharge. Her was transferred last night for respiratory distress. She had a female infant at 36 weeks gestation. Delivery was uncomplicated. This morning the patients only complains of some slight uterine cramping that is worse when she is pumping. Reports she is ambulating, tolerating p.o., and voiding without difficulty or dysuria. Her mom is in the room with her and they are anxious to get to [place] with her baby. I reviewed the discharge instructions with the patient and her mom in detail and they voiced understanding. I answered all the questions and concerns. I voiced the importance of seeking medical attention should any complication arise and patient stated understanding. Verbal and written discharge instructions to include when to return to medical care provided to the patient Exam Data for Last 24 hours Vital signs and Labs for Last 24 Hours: Temp Pulse Resp BP Pulse Ox O2 Del Method 97.5 F L 77 17 130/74 98 Room Air 07/03/23 04:20 07/03/23 04:20 07/03/23 04:20 07/03/23 04:20 07/03/23 04:20 07/03/23 04:20 Laboratory Results - last 24 hr 07/02/23 12:46: WBC 14.3 H, RBC 4.98, Hgb 12.7, Hct 38.9, MCV 78.1 L, MCH 25.4 L, MCHC 32.6, RDW 14.0, Plt Count 375, MPV 9.1, Neut % (Auto) 77.0, Lymph % (Auto) 14.3, [place] % (Auto) 4.7, Eos % (Auto) 3.6, Baso % (Auto) 0.4, Neut # (Auto) 11.0 H, Lymph # (Auto) 2.1, [place] # (Auto) 0.7, Eos # (Auto) 0.5 H, Baso # (Auto) 0.1, Blood Type O Positive, Antibody Screen Negative 07/02/23 13:48: POC Glucose 97 07/02/23 14:00: Urine Color Yellow, Urine Appearance Clear, Urine pH 6.5, Ur Specific [place] 1.010, Urine Protein Negative, Urine Glucose (UA) Trace, Urine Ketones Negative, Urine Blood Negative, Urine Nitrate Negative, Urine Bilirubin Negative, Urine Urobilinogen 0.2, Ur Leukocyte Esterase 2+ A, Urine RBC None, Urine WBC 5-10, Ur Squamous Epith Cells 3-5, Urine Bacteria Trace, Urine Opiates Screen Negative, Urine Methadone Screen Negative, Ur Barbituates Screen Negative, Ur Phencyclidine Scrn Negative, Ur Amphetamines Screen Negative, U Benzodiazepines Scrn Negative, Urine Cocaine Screen Negative, U Marijuana (THC) Screen Negative 07/03/23 04:27: WBC 13.3 H, RBC 4.51, Hgb 11.3 L D, Hct 35.5 L, MCV 78.8 L, MCH 24.8 L, MCHC 31.4 L, RDW 14.2, Plt Count 339, MPV 9.6, Neut % (Auto) 66.5, Lymph % (Auto) 21.4, [place] % (Auto) 6.6, Eos % (Auto) 5.1, Baso % (Auto) 0.4, Neut # (Auto) 8.8 H, Lymph # (Auto) 2.8, [place] # (Auto) 0.9, Eos # (Auto) 0.7 H, Baso # (Auto) 0.1 I & O for Last 24 hours: Intake & Output 06/30/23 07/01/23 07/02/23 07/03/23 23:59 23:59 23:59 23:59 Weight 209 lb Narrative: General: patient is alert oriented in no acute distress and responds appropriately to questions. Appears to be in minimal pain. HEENT: NCAT, EOMI, moist mucous membranes, neck supple with full
--- NOTE | 2023-07-08 09:05 | SW/DCPLANNER ---
Infant cord screen is NEGATIVE.
== END 2023-07-03 06:25 | disposition home or self-care (01) | DRG 807 ==
LOC: OBOUT 12:57 → OB 12:57
PROVIDERS: Admitting Provider Obstetrics & Gynecology; PCP Internal Medicine Adolescent Medicine; Visit Provider Obstetrics & Gynecology
DX: O60.14X0 Preterm labor third trimester with preterm delivery third trimester, not applicable or unspecified (principal); Z37.0 Single live birth; Z3A.36 36 weeks gestation of pregnancy; O70.1 Second degree perineal laceration during delivery; O24.419 Gestational diabetes mellitus in pregnancy, unspecified control
CPT/HCPCS: 59409; 59025; 80305; 81001; 82962; 85025; 86403; 86850; 87086; 90707; 94761; G0283; J0290

== ENCOUNTER → 2023-07-02 23:03 | Outpatient (CLI) | payer BC, SELFPAY | PROVIDERS: PCP Internal Medicine Adolescent Medicine; Visit Provider Obstetrics & Gynecology | DX: Z34.90 Encounter for supervision of normal pregnancy, unspecified, unspecified trimester (principal) ==

== ENCOUNTER 2024-03-28 11:31 | Emergency (ER) | payer BC, SELFPAY ==
[2024-03-28 11:35] VITALS: BP 127/72; PULSE 105; RESP 19; TEMP 36.9; O2SAT 96; BMI 31.8
--- NOTE | 2024-03-28 12:05 | EXP.UTC ---
Discharge Plan Disposition Patient Disposition: Home, Self-Care Condition: Good Prescriptions Prescriptions: New eymiemzrumldaha-stlzevxey-BY [Bromfed DM] 2-30-10 mg/5 mL syrup 10 ml PO Q6H PRN (Reason: cold symptoms) Qty: 200 0RF methylprednisolone [Medrol (Clarence)] 4 mg tablets,dose pack See Rx Instructions .ROUTE .COMPLEX 6 Days Qty: 21 0RF Rx Instructions: 4 mg orally ;Medrol dose taper clarence azithromycin 250 mg tablet See Rx Instructions .ROUTE .COMPLEX Qty: 6 0RF Rx Instructions: For 250 mg dose pack: take 500 mg today (day 1), then 250 mg for 4 days (days 2-5) No Action Mirena 21 mcg/24 hours (8 yrs) 52 mg intrauterine device 1 device intrauterine ONCE Referrals Follow up/Referrals: Rj Terrell MD [Primary Care Provider] - See instructions Activity Restrictions/Add. Instructions Additional Instructions/Restrictions: Take medication as prescribed. If symptoms persist or worsen, follow up with PCP. Clinical Impressions Clinical Impression: Acute upper respiratory infection Instructions Patient Instructions: DI for Acute Bronchitis Discharge ED Provider: Helen Shepherd [facility] General Stated complaint: cough congestion johnson body ache Mode of Arrival: Ambulatory Source of Information: Patient Limitations: No Limitations Time Seen by Provider: 03/28/24 12:05 Description of Symptoms (Recalled from Triage Doc. by RN): PATIENT C/O COUGH, CONGESTION, HEADACHE, AND FATIGUE X 4 DAYS HEENT Symptoms (Recalled from RN notes): Yes Resp Symptoms (Recalled from RN notes): Yes Skin Symptoms (Recalled from RN notes): No MS Symptoms (Recalled from RN notes): No Functional Status (Recalled from RN notes): WNL History of Present Illness Provider Complaint: Pt reports that she got sick with sinus symptoms and cough. She reports that recently she started coughing up phlegm. She reports a history of asthma and reports that she used her inhaler, but this did not help. Related Data Home Medications Medication Instructions Recorded Confirmed levonorgestrel 21 mcg/24 hr (up to 1 device intrauterine ONCE 09/10/23 03/28/24 8 years) 52 mg intrauterine device (Mirena) Previous Rx's Medication Instructions Recorded azithromycin 250 mg tablet See Rx Instructions PO .COMPLEX #6 03/28/24 tabs zwufaexanurhncj-iprcaczszomewfq-LG 10 ml PO Q6H PRN cold symptoms 03/28/24 2 mg-30 mg-10 mg/5 mL oral syrup #200 mL (Bromfed DM) methylprednisolone 4 mg tablets in See Rx Instructions .Route 03/28/24 a dose pack (Medrol (Clarence)) .COMPLEX 6 days #21 tabs Allergies Allergy/AdvReac Type Severity Reaction Status Date / Time No Known Allergies Allergy Verified 09/10/23 14:37 Worker's Comp Is this a Worker's Comp case?: No [facility] Dis[facility]: The information contained in this section may have been updated after the patient was seen, as this information can be updated by other users. Medical History 36 weeks gestation of Asthma Encounter for insertion of mirena IUD Mirena IUD inserted 08/13/23 GDM, class A2 Positive urine drug screen THC labor Surgical History No history of previous surgery Social History Smoking Status: Current some day smoker tobacco type: e-cigarettes alcohol intake: current alcohol intake frequency: holidays/special occasions only substance use type: denies use current occupational status: previously employed Travel in the last 8 weeks: None household members: family housing: house marital status: do you feel safe at home: Yes victim of physical abuse: No victim of emotional abuse: No victim of sexual abuse: No ROS Obtained: Yes All systems reviewed & no additional complaints except as documented Constitutional Constitutional: Reports system reviewed and no additional complaints, except as documented and Reports malaise Eyes Eyes: Reports system reviewed and no additional complaints, except as documented ENT Ears, Nose, Mouth, and Throat: Reports system reviewed and no additional complaints, except as documented, Reports nasal congestion, Reports nasal discharge, Reports post nasal drip, Reports sinus pressure and Reports sore throat Cardiovascular Cardiovascular: Reports system reviewed and no additional complaints, except as documented Respiratory Respiratory: Reports system reviewed and no additional complaints, except as documented, Reports chest congestion and Reports cough with sputum production Gastrointestinal Gastrointestingal: Reports system reviewed and no additional complaints, except as documented Genitourinary Female Genitourinary: Reports system reviewed and no additional complaints, except as documented Musculoskeletal Musculoskeletal: Reports system reviewed and no additional complaints, except as documented Integumentary/Breasts Skin/Breast: Reports system reviewed and no additional complaints, except as documented Neurologic Neurologic: Reports system reviewed and no additional complaints, except as documented Endocrine Endocrine: Reports system reviewed and no additional complaints, except as documented Hematologic/Lymphatic Henatologic/Lymphatic: Reports system reviewed and no additional complaints, except as documented Allergic/Immunologic Allergic/Immunologic: Reports system reviewed and no additional complaints, except as documented Physical Exam General General appearance: alert Comment: ill appearing Head Head exam: atraumatic and normocephalic Eye Eye exam: Present normal appearance Expanded ENT Exam External ear exam: Present normal external inspection Nose exam: Present sinus tenderness (maxillary) Nasal speculum exam: Bilateral: other (clear drainage) Mouth exam: Present normal external inspection Teeth exam: Present normal inspection Throat exam: Present normal inspection Neck Neck exam: Present normal inspection; Absent lymphadenopathy Chest Chest inspection: Present normal inspection and symmetric chest wall rise Respiratory Respiratory exam: Present wheezes Expanded Respiratory Exam Location: Left: rhonchi, Right: rhonchi, Upper: rhonchi and Lower: rhonchi Cardiovascular Cardiovascular exam: Present regular rate, normal rhythm and normal heart sounds Abdominal Exam Abdominal exam: Present soft and normal bowel sounds Extremities Exam Extremities exam: Present normal inspection Back Exam Back exam: Present normal inspection Neurological Exam Neurological exam: Present alert and oriented X3 Psychiatric Psychiatric exam: Present normal affect and normal mood Skin Skin exam: Present warm Lymphatic Lymphatic Findings: no adenopathy Medical Decision Making Yosef Inquiry Pt receiving controlled substance: No Yosef was queried for this patient: No Vital Signs: 03/28/24 11:35 Temperature 98.4 F Temperature Source Oral Pulse Rate [Left Brachial] 105 H Respiratory Rate 19 Blood Pressure [Left Arm] 127/72 Blood Pressure Mean [Left Arm] 90 Blood Pressure Source [Left Arm] Automatic Cuff Blood Pressure Position [Left Arm] Sitting 02 Sat by Pulse Oximetry 96 Oxygen Delivery Method Room Air
[2024-03-28 12:20] VITALS: BP 127/72; PULSE 105; RESP 19; TEMP 36.9; O2SAT 96
== END 2024-03-28 12:22 | disposition home or self-care (01) ==
PROVIDERS: Emergency Provider Nurse Practitioner Family; PCP Internal Medicine Adolescent Medicine
DX: R05.9 Cough, unspecified (principal); J06.9 Acute upper respiratory infection, unspecified; F17.290 Nicotine dependence, other tobacco product, uncomplicated
CPT/HCPCS: 99212; 99214; G0463

== ENCOUNTER 2024-04-26 09:07 | Emergency (ER) | payer BC, SELFPAY ==
[2024-04-26 09:20] VITALS: BP 116/74; PULSE 81; RESP 19; TEMP 36.7; O2SAT 99; BMI 31.9
--- NOTE | 2024-04-26 09:31 | EXP.UTC ---
Discharge Plan Disposition Patient Disposition: Home, Self-Care Condition: Good Prescriptions Prescriptions: New amoxicillin 875 mg tablet 875 mg PO Q12H Qty: 20 0RF No Action Mirena 21 mcg/24 hours (8 yrs) 52 mg intrauterine device 1 device intrauterine ONCE Referrals Follow up/Referrals: Rj Terrell MD [Primary Care Provider] - See instructions Activity Restrictions/Add. Instructions Additional Instructions/Restrictions: *Monitor Temp, Over the counter Motrin or Tylenol as directed/as needed Tylenol every 4 hours and Motrin every 6 hours (as long as your family doctor has told you that you can take it) for fever or pain. and straight to ER if unable to lower temp less than 101.0 after medication given *Warm salt water gargles may help to soothe the throat *Throat Lozenges? *Warm fluids like tea with honey may help to soothe the throat? *Sleep elevated *Humidifier/Vaporizer *If you did not take Penicillin shot or was unable to, start taking antibiotic immediately and make sure that you take it for the FULL length of time although you should start to feel better in 24-48 hours *change toothbrush and toothpaste 24-48 hours after starting to take antibiotics so you do not reinfect yourself Monitor Temp. Tylenol and/or Ibuprofen as needed. ER if fever is no less than 101 despite alternating Tylenol and Ibuprofen * Encourage fluids, water, Gatorade, powerade, pedialyte if /toddler/or child *Cold fluids, popsicles and ice cream may feel good on his throat * Follow up IMMEDIATELY for new or worsening symptoms or no Noticeable improvement over the next 48-72 hours. 911 for difficulty breathing or swallowing Clinical Impressions Clinical Impression: Strep throat Instructions Patient Instructions: DI for Strep Throat, Strep Throat Discharge ED Provider: Marley Dillon [facility] [place] HPI General Stated complaint: sore throat, body aches Mode of Arrival: Ambulatory Source of Information: Patient Limitations: No Limitations Time Seen by Provider: 04/26/24 09:31 Description of Symptoms (Recalled from Triage Doc. by RN): PATIENT C/O SORE THROAT WITH WHITE BLISTERS, HEADACHE, AND SHARP PAIN BEHIND RIBS X 2 DAYS HEENT Symptoms (Recalled from RN notes): Yes Resp Symptoms (Recalled from RN notes): No Skin Symptoms (Recalled from RN notes): No MS Symptoms (Recalled from RN notes): Yes Functional Status (Recalled from RN notes): WNL History of Present Illness Provider Complaint: Patient states that for the last couple of days she has been having sore throat and blisters on her tonsils Also states that for a little while she has been having sharp pain on and off behind her ribs but not bothering her right now Related Data Home Medications Medication Instructions Recorded Confirmed levonorgestrel 21 mcg/24 hr (up to 1 device intrauterine ONCE 09/10/23 04/26/24 8 years) 52 mg intrauterine device (Mirena) Previous Rx's Medication Instructions Recorded amoxicillin 875 mg tablet 875 mg PO Q12H #20 tabs 04/26/24 Allergies Allergy/AdvReac Type Severity Reaction Status Date / Time No Known Allergies Allergy Verified 09/10/23 14:37 Worker's Comp Is this a Worker's Comp case?: No [facility] Disclaimer: The information contained in this section may have been updated after the patient was seen, as this information can be updated by other users. Medical History 36 weeks gestation of Asthma Encounter for insertion of mirena IUD Mirena IUD inserted 08/13/23 GDM, class A2 Positive urine drug screen THC labor Surgical History No history of previous surgery Social History Smoking Status: Current some day smoker tobacco type: e-cigarettes alcohol intake: current alcohol intake frequency: holidays/special occasions only substance use type: denies use current occupational status: previously employed Travel in the last 8 weeks: None household members: family housing: house marital status: do you feel safe at home: Yes victim of physical abuse: No victim of emotional abuse: No victim of sexual abuse: No ROS Obtained: Yes All systems reviewed & no additional complaints except as documented and Yes Systems reviewed as appropriate & no additional complaints except as documented Constitutional Constitutional: Reports system reviewed and no additional complaints, except as documented and Reports as per HPI ENT Ears, Nose, Mouth, and Throat: Reports system reviewed and no additional complaints, except as documented, Reports as per HPI and Reports sore throat Cardiovascular Cardiovascular: Reports system reviewed and no additional complaints, except as documented and Reports as per HPI Respiratory Respiratory: Reports system reviewed and no additional complaints, except as documented and Reports as per HPI Gastrointestinal Gastrointestingal: Reports system reviewed and no additional complaints, except as documented and as per HPI Musculoskeletal Musculoskeletal: Reports system reviewed and no additional complaints, except as documented, Reports as per HPI and Reports other (pain on and off behind ribs) Physical Exam General General appearance: alert and in no apparent distress ENT ENT exam: Present mucous membranes moist Expanded ENT Exam Throat exam: Present tonsillar erythema and tonsillar exudate Chest Chest inspection: Present normal inspection and symmetric chest wall rise; Absent tenderness Respiratory Respiratory exam: Present normal lung sounds bilaterally; Absent respiratory distress or wheezes Cardiovascular Cardiovascular exam: Present regular rate, normal rhythm and normal heart sounds Neurological Exam Neurological exam: Present alert, oriented X3 and normal gait Medical Decision Making Yosef Inquiry Pt receiving controlled substance: No Yosef was queried for this patient: No Vital Signs: 04/26/24 09:20 Temperature 98.1 F Temperature Source Oral Pulse Rate [Left Brachial] 81 Respiratory Rate 19 Blood Pressure [Left Arm] 116/74 Blood Pressure Mean [Left Arm] 88 Blood Pressure Source [Left Arm] Automatic Cuff Blood Pressure Position [Left Arm] Sitting 02 Sat by Pulse Oximetry 99 Oxygen Delivery Method Room Air Lab Data Lab results reviewed: Yes I reviewed the patient's lab results.
[2024-04-26 09:33] LABS: UTC Strep Screen (Rapid) Positive (Negative)
[2024-04-26 09:43] VITALS: BP 116/74; PULSE 81; RESP 19; TEMP 36.7; O2SAT 99
== END 2024-04-26 09:45 | disposition home or self-care (01) ==
PROVIDERS: Emergency Provider Nurse Practitioner; PCP Internal Medicine Adolescent Medicine
DX: J02.0 Streptococcal pharyngitis (principal); R07.0 Pain in throat
CPT/HCPCS: 87880; 99212; 99214; G0463

== ENCOUNTER 2024-05-08 11:10 | Emergency (ER) | payer BC, SELFPAY ==
[2024-05-08 11:20] VITALS: BP 102/62; PULSE 71; RESP 14; TEMP 36.8; O2SAT 97; BMI 32.1
--- NOTE | 2024-05-08 11:22 | ED_ITS ---
Discharge Plan Disposition Patient Disposition: Home, Self-Care Condition: Good Prescriptions Prescriptions: New clindamycin HCl 300 mg capsule 300 mg PO Q8H Qty: 30 0RF methylprednisolone 4 mg Tablets,Dose Pack 4 mg PO DIRECTED 6 Days Qty: 21 0RF Rx Instructions: Take 1 pack as directed for 6 days vbcrjeaflljbpet-mzikowxnx-OR [Bromfed DM] 2-30-10 mg/5 mL Syrup 5 ml PO Q6H PRN (Reason: Cough) Qty: 240 0RF No Action Mirena 21 mcg/24 hours (8 yrs) 52 mg intrauterine device 1 device intrauterine ONCE albuterol sulfate 90 mcg/actuation HFA aerosol inhaler inhalation Patient Comments: INHALE 2 PUFFS BY MOUTH EVERY 6 HOURS NEEDED FOR ASTHMA budesonide-formoterol [Symbicort] 160-4.5 mcg/actuation HFA aerosol inhaler inhalation Patient Comments: INHALE 2 PUFFS BY MOUTH TWICE DAILY FOR 30 DAYS amoxicillin 875 mg tablet 875 mg PO Q12H Qty: 20 0RF Referrals Follow up/Referrals: Rj Terrell MD [Primary Care Provider] - See instructions Activity Restrictions/Add. Instructions Additional Instructions/Restrictions: Drink plenty of fluids. Take tylenol or ibuprofen for pain or fever. Take the medications as directed. Follow up with your regular doctor. GO TO THE ER FOR ANY WORSENING SYMPTOMS Clinical Impressions Clinical Impression: Pharyngitis Instructions Patient Instructions: Sore Throat, DI for Pharyngitis/Tonsillopharyngitis -- Adult Print Language Print Language: Moldovan Discharge ED Provider: Braden Gallego [facility] General Stated complaint: sore throat, headache and ear ache Time Seen by Provider: 05/08/24 11:22 Related Data Home Medications ?Medication ?Instructions ?Recorded ?Confirmed levonorgestrel 21 mcg/24 hr (up to 1 device intrauterine ONCE 09/10/23 04/28/24 8 years) 52 mg intrauterine device (Mirena) albuterol sulfate 90 mcg/actuation inhalation 04/28/24 04/28/24 aerosol inhaler budesonide-formoterol HFA 160 inhalation 04/28/24 04/28/24 mcg-4.5 mcg/actuation aerosol inhaler (Symbicort) Previous Rx's ?Medication ?Instructions ?Recorded amoxicillin 875 mg tablet 875 mg PO Q12H #20 tabs 04/26/24 vexbkfqozhsnkbl-wpbdfslqwnsddvl-CA 5 ml PO Q6H PRN Cough #240 mL 05/08/24 2 mg-30 mg-10 mg/5 mL oral syrup (Bromfed DM) clindamycin HCl 300 mg capsule 300 mg PO Q8H #30 caps 05/08/24 methylprednisolone 4 mg tablets in 4 mg PO DIRECTED 6 days #21 tabs 05/08/24 a dose pack Allergies Allergy/AdvReac Type Severity Reaction Status Date / Time No Known Allergies Allergy Verified 05/08/24 11:24 [facility] Disclaimer: The information contained in this section may have been updated after the patient was seen, as this information can be updated by other users. Medical History (Updated 05/08/24 @ 11:32 by Braden Gallego APRN) Vaginal discharge Pelvic pain Encounter for insertion of mirena IUD 36 weeks gestation of Asthma labor GDM, class A2 Positive urine drug screen Surgical History No history of previous surgery Social History Smoking Status: Current some day smoker tobacco type: e-cigarettes alcohol intake: current alcohol intake frequency: holidays/special occasions only substance use type: denies use current occupational status: previously employed Travel in the last 8 weeks: None household members: family housing: house marital status: do you feel safe at home: Yes victim of physical abuse: No victim of emotional abuse: No victim of sexual abuse: No ROS Obtained: Yes All systems reviewed & no additional complaints except as documented Constitutional Constitutional: Reports chills and Reports fever(s) Eyes Eyes: Denies eye discharge ENT Ears, Nose, Mouth, and Throat: Reports as per HPI Cardiovascular Cardiovascular: Denies chest pain Respiratory Respiratory: Denies chest congestion and Reports cough Gastrointestinal Gastrointestingal: Reports nausea; Denies abdominal pain, constipation, crampin g, diarrhea or vomiting Musculoskeletal Musculoskeletal: Denies arthralgias Integumentary/Breasts Skin/Breast: Denies rash Neurologic Neurologic: Denies paresthesias Physical Exam General General appearance: alert and in no apparent distress Head Head exam: atraumatic, normocephalic and normal inspection Eye Eye exam: Present normal appearance, PERRL and EOMI ENT ENT exam: Present mucous membranes moist and normal external ear exam Expanded ENT Exam TM/Canal exam: Bilateral TM: erythema and bulging Nose exam: Absent sinus tenderness Mouth exam: Present normal external inspection; Absent drooling Teeth exam: Present normal inspection Throat exam: Present tonsillar erythema, tonsillomegaly and tonsillar exudate Neck Neck exam: Present normal inspection, full ROM and trachea midline; Absent tenderness, meningismus or lymphadenopathy Chest Chest inspection: Present normal inspection and symmetric chest wall rise; Absent tenderness Respiratory Respiratory exam: Present normal lung sounds bilaterally; Absent respiratory distress, wheezes, stridor or accessory muscle use Cardiovascular Cardiovascular exam: Present regular rate and normal rhythm; Absent systolic murmur or diastolic murmur Abdominal Exam Abdominal exam: Present soft and normal bowel sounds; Absent distention, tenderness, guarding, rebound or rigidity Extremities Exam Extremities exam: Present normal inspection and normal capillary refill; Absent calf tenderness Back Exam Back exam: Present normal inspection and full ROM; Absent tenderness, CVA tenderness (R) or CVA tenderness (L) Neurological Exam Neurological exam: Present alert, oriented X3 and CN II-XII intact Psychiatric Psychiatric exam: Present normal affect and normal mood Skin Skin exam: Present warm, dry, intact and normal color Medical Decision Making Medical Records Medical records reviewed: No I reviewed the patient's medical records. Yosef Inquiry Pt receiving controlled substance: No Lab Data Lab results reviewed: Yes I reviewed the patient's lab results.
[2024-05-08 11:31] LABS: UTC Strep Screen (Rapid) Negative (Negative)
[2024-05-08 11:33] VITALS: BP 102/62; PULSE 71; RESP 14; TEMP 36.8
== END 2024-05-08 11:34 | disposition home or self-care (01) ==
PROVIDERS: Emergency Provider Nurse Practitioner Family; PCP Internal Medicine Adolescent Medicine
DX: J02.9 Acute pharyngitis, unspecified (principal); R51.9 Headache, unspecified
CPT/HCPCS: 87880; 99212; 99214; G0463

== ENCOUNTER 2024-09-14 07:59 | Day surgery (SDC) | payer BC, SELFPAY ==
[2024-09-13 09:53] VITALS: BMI 30.9
[2024-09-14] VITALS (8 sets, daily range): BP systolic 107–126; BP diastolic 48–78; PULSE 57–85; RESP 16–18; TEMP 36.2–37.1; O2SAT 94–100
[2024-09-14 08:48] LABS: Urine Pregnancy, HCG Qual. Negative (Negative)
[2024-09-14] MEDS: LACTATED RINGERS 1000ML 1,000 ML 100 ML IV (08:49)
--- NOTE | 2024-09-14 09:01 | P.PNANES_ITS ---
[facility] Disclaimer: The information contained in this section may have been updated after the patient was seen, as this information can be updated by other users. Medical History ADHD Vaginal discharge Pelvic pain Encounter for insertion of mirena IUD 36 weeks gestation of Asthma labor GDM, class A2 Positive urine drug screen Surgical History No history of previous surgery Family History (Updated 09/14/24 @ 08:48 by Sherron Bustamante RN) Other Breast cancer Social History (Updated 09/14/24 @ 08:49 by Sherron Bustamante RN) Smoking Status: Current every day smoker tobacco type: e-cigarettes alcohol intake: never substance use type: denies use current occupational status: employed Travel in the last 8 weeks: None household members: family housing: house marital status: do you feel safe at home: Yes victim of physical abuse: No victim of emotional abuse: No victim of sexual abuse: No [facility] Anesthesia Checklist Patient Identification Patient Identification: Arm Band Structural Data Admitted From: Home Planned Operative Procedure/s: Excision Left Wrist Ganglion Cyst Consent for Planned Operative Procedure(s) Verified: Yes Verified Documents: Surgical Consent and History and Physical NPO Status Verified Time NPO: 00:00 Additional verifications Anesthesia Reactions: No Hx Blood Transfusions: No Blood Transfusion Reaction: No Airway Assessment Mallampati Score:: Class I C-Spine Mobility Assessed: Yes TMJ Mobility Assessed: Yes Dentition: Good Dentition Neurological Assessment Level of Consciousness: Awake, Alert and Appropriate Anesthesia Plan Anesthesia Risk discussed: Yes Anesthesia Plan: Verified ASA Class: II Anesthesia Type: General
[2024-09-14] MEDS: CEFAZOLIN SODIUM 2 GM in 0.9 % SODIUM CHLORIDE 100 ML IV (10:15)
[2024-09-14] MEDS: BUPIVACAINE 0.5% 30ML VIAL 150 MG (10:33)
--- NOTE | 2024-09-14 11:26 | P.PNANES_ITS ---
[facility] Anesthesia Record Part I Anesthesia Record I Intake, IV Amount: 800 Hydration: Adequate Estimated blood loss (mL): 10 Urine output (mL): 0 Blood Products used (#): none Blood Pressure: 120/51 SaO2: 94 Pulse Rate: 75 Airway Patency: Patent (+ auditory expiratory wheezes noted. Neb ordered.) Respiratory Rate: 16 Temperature: 97.1 F Patient is:: Awake (Talking) and Stable Stable to PACU at:: 11:25
--- NOTE | 2024-09-14 11:26 | P.OP_ITS ---
Date of procedure: 09/14/24 Pre-op Diagnosis:: Ganglion cyst dorsum left wrist Post-op Diagnosis:: Same Procedure performed:: Excision ganglion cyst dorsum left wrist Surgeon:: Jackson Ch DO Object Oriented Programmer(s):: Prashanth MAGAÑA [employer] COORDINATOR:: Taina Mckeon Anesthesia: GETA Estimated blood loss (mL): 0 Operative findings:: Dorsal ganglion cyst Operative note:: Patient was identified preoperatively. Left wrist marked with yes my initials. Taken the operating suite placed upon operating bed. General anesthesia administered airway secured. Left upper extremity was prepped and draped with a hand table. Once prepped and draped final operative timeout performed to identify proper patient procedure and extremity. Everyone involved the case agreed. There is no counter indications beginning. Did receive preoperative antibiotics. Marking pen was used to make planned incision over the dorsum of the wrist. Esmarch was used to exsanguinate extremity pneumatic tourniquet inflated to 250 mmHg. Skin knife is used to incise through skin dissection was taken down with the scissors around the soft tissue mass ganglion cyst on the dorsum of the wrist adjacent with the radiocarpal joint. Meticulous diet section was taken down to find the base of the cyst. The cyst was excised in its entirety. Irrigation of the wound performed. Deep layers closed with Vicryl. Skin closed with nylon stitch. Sterile hand dressing placed. Patient waken anesthesia taken recovery in stable condition. Condition: stable Disposition: PACU Specimens:: Cyst Complications:: None apparent
[2024-09-14] MEDS: IPRATROPIUM/ALBUTEROL 3 ML NEB IH (11:33)
--- NOTE | 2024-09-14 11:40 | SUR.PHASEII ---
Clinic pharmacy contacted about meds to beds @ this time. Spoke w/ Mariam.
--- NOTE | 2024-09-15 08:04 | P.PNANES_ITS ---
[facility] Anesthesia Record Part II Anesthesia Record Part II Discharge Time: 11:50 Destination: Surgical Day Care (OP Surgery) PACU nurse assessment reviewed?: Yes Patient Condition:: Good Anesthesia Complications:: None Swallowing reflex intact?: Yes Airway Patency: Patent Cyanosis?: No Blood Pressure: 126/78 SaO2: 99 Respiratory Rate: 16 Pulse Rate: 79 Temperature: 97.1 F Mental Status: Alert & Oriented Pain level:: 0 Nausea and/or vomitting:: None Intake, IV Amount: 800 Hydration: Adequate
[2024-09-15 08:06] VITALS: BP 126/78; PULSE 79; RESP 16; TEMP 36.2; O2SAT 99
== END 2024-09-14 12:20 | disposition home or self-care (01) ==
PROVIDERS: PCP Internal Medicine Adolescent Medicine; Visit Provider Orthopaedic Surgery
PROC: (CPT 25111; principal; 2024-09-14 09:30)
DX: M67.432 Ganglion, left wrist (principal)
CPT/HCPCS: 25111; 81025; 96374; C9144; J0690; J1100; J1885; J2250; J2405; J3010; J7120; J7620

== ENCOUNTER 2024-10-02 10:58 | Emergency (ER) | payer BC, SELFPAY ==
[2024-10-02] VITALS (9 sets, daily range): BP systolic 118–134; BP diastolic 67–83; PULSE 77–111; RESP 18–20; TEMP 36.9; O2SAT 93–100; BMI 30.9
[2024-10-02 11:09] LABS: Coronavirus 19, PCR Not Detected (NotDetected); Influenza A, PCR Not Detected (NotDetected); Influenza B, PCR Not Detected (NotDetected)
[2024-10-02] MEDS: DEXAMETHASONE 4MG TABLET 10 MG PO (11:41)
[2024-10-02] MEDS: IPRATROPIUM/ALBUTEROL 3 ML NEB 9 ML IH (11:42)
--- NOTE | 2024-10-02 13:36 | HMH.EDGENADL ---
Discharge Plan Disposition Patient Disposition: Home, Self-Care Condition: Good Prescriptions Prescriptions: New albuterol sulfate 90 mcg/actuation HFA aerosol inhaler 2 inh inhalation Q4H PRN (Reason: shortness of breath or wheezing) Qty: 6.7 0RF Discontinued albuterol sulfate 90 mcg/actuation HFA aerosol inhaler 1 puff inhalation DAILY Patient Comments: INHALE 2 PUFFS BY MOUTH EVERY 6 HOURS NEEDED FOR ASTHMA No Action clonidine HCl 0.1 mg tablet 0.1 mg PO HS atomoxetine 40 mg capsule 40 mg PO DAILY tramadol 50 mg tablet 50 mg PO Q6H PRN (Reason: post op pain) Qty: 20 0RF Referrals Follow up/Referrals: Rj Terrell MD [Primary Care Provider] - See instructions Activity Restrictions/Add. Instructions Additional Instructions/Restrictions: Continue to use her inhaler every 4 hours for wheezing and shortness of breath. The steroids were given today should cover you for the next 2 days. Treat other symptoms, like coughing with lozenges and coij-ngy-yibvnrs medications. If your symptoms worsen and you are having significant difficulty breathing, please return for reevaluation. Follow-up with your primary care provider in the next week for reevaluation and discussion of additional asthma medications. Clinical Impressions Clinical Impression: Upper respiratory infection Qualifiers: URI type: unspecified viral URI Qualified Code(s): J06.9 - Acute upper respiratory infection, unspecified Asthma exacerbation Qualifiers: Asthma severity: mild Asthma persistence: intermittent Qualified Code(s): J45.21 - Mild intermittent asthma with (acute) exacerbation Instructions Patient Instructions: DI for Acute Bronchitis Print Language Print Language: Bulgarian Discharge ED Provider: Noris Gentile General Adult HPI General Chief complaint: Upper Respiratory Infection Stated complaint: cough, soa, dizzy, fever Time Seen by Provider: 10/02/24 11:16 Mode of Arrival: Ambulatory Source of Information: Patient Limitations: No Limitations Description of Symptoms (Recalled from ER Triage Doc. by RN): COUGH,CONGESTION. History of Present Illness HPI narrative: Patient is a 24-year-old female presenting with shortness of breath and coughing. Patient has history of asthma and has an albuterol inhaler at home. She states she had used it multiple times and it has not helped much. Patient's symptoms have been present for the past 2 to 3 days and worsened today. She states she took NyQuil last night which did not help much and she was barely able to sleep. She denies fevers, chills, chest pain, nausea, vomiting, bowel or bladder dysfunction. Related Data Home Medications ?Medication ?Instructions ?Recorded ?Confirmed atomoxetine 40 mg capsule 40 mg PO DAILY 09/13/24 09/29/24 clonidine HCl 0.1 mg tablet 0.1 mg PO HS 09/13/24 09/29/24 Previous Rx's ?Medication ?Instructions ?Recorded tramadol 50 mg tablet 50 mg PO Q6H PRN post op pain #20 09/14/24 tabs albuterol sulfate 90 mcg/actuation 2 inh inhalation Q4H PRN shortness 10/02/24 aerosol inhaler of breath or wheezing #6.7 grams Allergies Allergy/AdvReac Type Severity Reaction Status Date / Time No Known Allergies Allergy Verified 09/29/24 14:17 [facility] Disclaimer: The information contained in this section may have been updated after the patient was seen, as this information can be updated by other users. Medical History ADHD Vaginal discharge Pelvic pain Encounter for insertion of mirena IUD Mirena IUD inserted 08/13/23 36 weeks gestation of Asthma labor GDM, class A2 Positive urine drug screen THC Surgical History No history of previous surgery Family History Other Breast cancer Social History Smoking Status: Never smoker alcohol intake: never substance use type: denies use current occupational status: employed Travel in the last 8 weeks: None household members: family housing: house marital status: do you feel safe at home: Yes victim of physical abuse: No victim of emotional abuse: No victim of sexual abuse: No Have you lived/traveled outside [place] in past 30 days?: No Contact w/someone who lives/traveled outside [place] past 30 days?: No Exposure to someone with infectious disease in past 14 days?: No Do you have a fever (greater than 100.4 F or 38 C)?: No Have you tested positive for COVID-19: No Exposed to someone with COVID-19 in past 14 days?: No Do you have a sore throat?: No Do you have a cough?: Yes Do you have any weakness?: Yes Do you have any diarrhea?: No Are you experiencing any unusual bleeding?: No Do you have any muscle aches/pain?: No Do you have any abdominal pain?: No Are you experiencing loss of taste or smell?: No Other Medical History Have you received the Flu Vaccine for this season: No Have you received the Pneumonia Vaccine: No ROS Obtained: Yes All systems reviewed & no additional complaints except as documented Physical Exam General General appearance: alert and in no apparent distress Respiratory Respiratory exam: Present normal lung sounds bilaterally and wheezes; Absent respiratory distress, stridor or accessory muscle use Cardiovascular Cardiovascular exam: Present regular rate and normal rhythm; Absent JVD Neurological Exam Neurological exam: Present alert and oriented X3 Skin Skin exam: Present warm, dry, intact and normal color Medical Decision Making Medical Records Screening: Per USPSTF and CDC recommendations, given the prevalence of disease in our region, it is our hospital?s policy to screen for HIV and viral Hepatitis for all patients aged 18 and over and those with ongoing risk factors. Yosef Inquiry Pt receiving controlled substance: No Vital Signs: 10/02/24 10:58 10/02/24 11:03 10/02/24 11:30 Temperature 98.4 F Temperature Source Oral Pulse Rate 111 H 99 H Pulse Rate [Right] 98 H Respiratory Rate 18 Blood Pressure 125/83 134/71 Blood Pressure [Right Arm] 125/83 Blood Pressure Mean Blood Pressure Mean [Right Arm] 97 02 Sat by Pulse Oximetry 96 96 93 L Oxygen Delivery Method Room Air Room Air 10/02/24 11:58 10/02/24 12:00 10/02/24 12:30 Temperature Temperature Source Pulse Rate 101 H 96 H 95 H Pulse Rate [Right] Respiratory Rate Blood Pressure 128/75 130/70 119/67 Blood Pressure [Right Arm] Blood Pressure Mean Blood Pressure Mean [Right Arm] 02 Sat by Pulse Oximetry 99 99 100 Oxygen Delivery Method Room Air Room Air Room Air 10/02/24 13:00 10/02/24 13:30 10/02/24 13:37 Temperature 98.4 F Temperature Source Pulse Rate 77 87 Pulse Rate [Right] Respiratory Rate 20 Blood Pressure 118/74 130/76 130/76 Blood Pressure [Right Arm] Blood Pressure Mean 94 Blood Pressure Mean [Right Arm] 02 Sat by Pulse Oximetry 98 Oxygen Delivery Method Room Air Room Air Lab Data Lab Results 10/02/24 11:00: SARS-CoV-2 (PCR) Not detected, Influenza A Untype (PCR) Not detected, Influenza Type B (PCR) Not detected Orders (Tests/Meds): ED MEDICATIONS Discontinued Medications Generic Name Dose Route Start Last Admin Trade Name Sara PRN Reason Stop Dose Admin Albuterol/Ipratropium 9 ml 10/02/24 11:37 10/02/24 11:42 Ipratropium/Albuterol 3 Ml Neb IH 10/02/24 11:38 9 ml ONCE ONE Administration Dexamethasone 10 mg 10/02/24 11:37 10/02/24 11:41 Dexamethasone 4mg Tablet PO 10/02/24 11:38 10 mg ONCE ONE Administration ORDERS Category Date Time Status Rapid PCR Covid and Flu A/B Stat Lab 10/02/24 11:00 Completed Medical Decision Narrative: In summary, this is a 24-year-old female with a history of asthma presenting with shortness of breath and cough. Differential diagnosis includes but is not limited to, viral upper respiratory infection, pneumonia, asthma exacerbation, reactive airway disease, among others. Based on patient's presentation, she has audible wheezing without a stethoscope. On auscultation, patient has inspiratory and expiratory wheezing bilaterally. Patient is able to speak in short sentences. Patient evaluated with a viral swab and treated with 3 DuoNebs and Decadron. On reevaluation, patient had decreased wheezing bilaterally. Patient was able to speak in full sentences and felt increased comfort without respiratory distress. Patient felt comfortable going home and continuing her albuterol inhaler every 4 hours. Patient noted that she needed a refill and a new prescription was provided. Patient advised to follow-up with her primary care provider for reevaluation and possible change in chronic management of her asthma. Noris Gentile MD PGY-3, Emergency Medicine Critical Care Critical Care Time Critical Care Time: No
== END 2024-10-02 13:46 | disposition home or self-care (01) ==
PROVIDERS: Emergency Provider Student in an Organized Health Care Education/Training Program; PCP Internal Medicine Adolescent Medicine
DX: J45.901 Unspecified asthma with (acute) exacerbation (principal); J06.9 Acute upper respiratory infection, unspecified; R05.9 Cough, unspecified; R06.02 Shortness of breath; R42 Dizziness and giddiness; R50.9 Fever, unspecified; R09.81 Nasal congestion
CPT/HCPCS: 87636; 99283; J7620; J8540

== ENCOUNTER 2025-02-16 14:25 | Outpatient (CLI) | payer BC, SELFPAY ==
--- NOTE | 2025-02-16 14:28 | US_ITS ---
PROCEDURE INFORMATION: Exam: US Left Breast, Complete MG Left Diagnostic Breast Tomosynthesis Exam date and time: 02/16/2025 2:26 PM Age: 24 years old Clinical indication: Left breast palpable lump; Mass of multiple sites of left breast TECHNIQUE: Imaging protocol: Complete ultrasound of all four quadrants of the left breast and the retroareolar regions, including ultrasound of the axilla when performed. Left Diagnostic tomosynthesis and 2D mammography including computer-aided detection (CAD) when performed. Unilateral or bilateral exam. COMPARISON: No relevant prior studies available. FINDINGS: MAMMOGRAPHY: Breast composition: There are scattered areas of fibroglandular density. Breast mammogram findings: There is no stellate mass, architectural distortion or suspicious microcalcifications in either breast to suggest malignancy. No skin thickening or axillary adenopathy. 2 skin markers were placed over areas of palpable concern both laterally and medially. No suspicious findings on routine or spot compression views ULTRASOUND: Breast ultrasound findings: Sonographic images of the left breast including the retroareolar region, all 4 quadrants and the axilla do not demonstrate any solid or cystic masses. No architectural distortion or acoustical shadowing. No skin thickening or axillary adenopathy. IMPRESSION: Palpable abnormalities in the left breast correspond mammographically and sonographically to normal fibroglandular parenchyma.Further evaluation of a palpable abnormality should be based on clinical grounds regardless of radiographic findings or lack thereof. ASSESSMENT: BI-RADS Category 1: Negative.
== END 2025-02-16 23:59 | disposition home or self-care (01) ==
LOC: RAD 14:25
PROVIDERS: PCP Internal Medicine Adolescent Medicine; Visit Provider Nurse Practitioner Family
DX: N63.20 Unspecified lump in the left breast, unspecified quadrant (principal); Z80.3 Family history of malignant neoplasm of breast
CPT/HCPCS: 76641; 77061; 77065; G0279